=== PATIENT | female | born 1945 | race Caucasian/White ===

== ENCOUNTER 2017-09-07 07:00 | Day surgery (SDC) | payer OTHER ==
[2017-09-03 10:24] LABS: Protime INR 0.93
--- NOTE | 2017-09-03 10:31 | RAD REPORT ---
EXAM DESCRIPTION: RADOP - Outpatient Chest Single View - 09/03/2017 9:53 am CLINICAL HISTORY: Preop chest, pending catheterization COMPARISON: November 2016 TECHNIQUE: AP portable chest image was obtained 0948 hours . FINDINGS: Minimal fibrotic changes present similar to comparison. No failure, infiltrate or mass. Tr achea is midline Heart and vasculature are normal. No measurable pleural effusion and no pneumothorax . Degenerative and scoliotic changes are present in the spine with scoliosis rods in place. No hardwa re fracture or acute thoracic spine finding identifiable. There degenerative changes and fracture hermilo nges at the right shoulder joint that have shown complete or near complete healing since November 2016. N o acute aortic findings suspected. IMPRESSION: No failure, infiltrate or acute cardiopulmonary finding. Minimally fibrotic lung pattern has not changed. Complete or near complete healing of the proximal right humerus fracture since November 2016.
[~2017-09-07 07:00] MED LIST: HEPA 1000U/500MLS 2,000 UNIT/1,000 ML BAG IV ONE; LIDOCAINE 1% 20 ML MDV ONE; NA CHLORIDE 0.9% 500 ML ONE
[2017-09-07] MEDS ORDERED: ATROPINE SULF 1 MG/10 ML SYR IV ONE (07:31)
[2017-09-07] MEDS ORDERED: MIDAZOLAM HCL 2 MG/2 ML INJ ONE ×2 (07:31→07:32)
[2017-09-07 11:48] VITALS: BP 106/49; TEMP 98.3; O2SAT 96
--- NOTE | 2017-09-07 19:17 | OP ---
Surgeon: Yong Rivera MD Mrs. Saeed is 72. Procedure: Abdominal angiogram with special attention to the celiac and superior mesenteric arteries . 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 Findings: The patient had no significant stenosis of the celiac, superior mesenteric or inferior mes enteric arteries. Her aorta was free of any significant atherosclerotic changes. No significant riky cification or stenosis or aneurysmal dilatation anywhere. Procedure In Detail: The patient was brought to the cardiac kiln labourer in a fasting state and sedated with Versed. She was prepared and draped in usual sterile fashion. Right femoral artery was identif ied using palpation. Skin and tissues around the artery were anesthetized with 1% lidocaine. The ar dominga was entered using an 18-gauge needle, modified Seldinger technique 6-Albanian sheath. We put a pi gtail right at about the diaphragmatic dome area of the aorta. We were unable to do any AP views bec ause of Mckeon rods. They were very close to the area of interest. All the views we took were e ither 90 degree cross-table laterals or steeply angle views to get the Mckeon rods away from the area of interest. We did 2 injections into the aorta and able to get good views few slightly differe nt angles. There is no stenosis of the celiac, superior mesenteric, hepatic or splenic arteries or t he inferior mesenteric artery. The aorta was free of disease. It is believed the MRA was a false-po sitive test. At the end of the procedure, the arteriotomy was closed using Angio-Seal device. We di d an injection through the sheath to evaluate the right femoral artery. Closure was done without com plications. Estimated Blood Loss: From the procedure 5 cc. Maintenance Director: Leticia Wooten. Complications: None. SH/MODL Voice ID: [id number] Report ID: [id number]
== END 2017-09-07 12:41 | disposition home or self-care (01) ==
LOC: CCL 07:00
PROVIDERS: ATTEND Internal Medicine
DX: R93.8 Abnormal findings on diagnostic imaging of other specified body structures (principal); I10 Essential (primary) hypertension; Z91.011 Allergy to milk products
CPT/HCPCS: 36200; 36415; 71045; 75630; 85610; 85730; C1893; J2250 ×2

== ENCOUNTER 2017-09-17 14:17 | Emergency (ER) | payer OTHER ==
--- NOTE | 2017-09-17 15:33 | RAD REPORT ---
EXAM DESCRIPTION: RAD - Chest Single View - 09/17/2017 3:27 pm CLINICAL HISTORY: Chest pain. COMPARISON: 12/07/2016 FINDINGS: Portable technique limits examination quality. The lungs are grossly clear. The heart is normal in size. No displaced fractures.Scoliosis hardware i s in place. IMPRESSION: No acute intrathoracic process suspected.
[2017-09-17 15:44] LABS: Absolute Lymphocytes (CBC) 1.5 K/uL (0.7-4.9); Absolute Monocytes 0.5 K/uL (0.1-1.3); Absolute Neutrophil 3.1 K/uL (1.8-8.0); Basophils % 1.1 % (0-1.3); Eosinophils % 4.2 % (0-4.4); Hematocrit 39.3 % (36.0-45.0); Lymphocytes % 28.3 % (15.3-44.8); MCH 30.2 pg (27.0-35.0); MCV 90.9 fL (80-100); Monocytes % 9.9 % (3.3-12.3); RBC Red Blood Cell Count 4.32 M/uL (3.86-4.86)
[2017-09-17 15:54] LABS: Potassium 3.7 mEq/L (3.6-5.0); Protime INR 1.01
[2017-09-17 15:57] LABS: Magnesium 2.2 mg/dL (1.8-2.5)
--- NOTE | 2017-09-17 15:58 | RAD REPORT ---
EXAM DESCRIPTION: US - Abdomen Exam Limited - 09/17/2017 3:49 pm CLINICAL HISTORY: Abdominal pain. COMPARISON: None. FINDINGS: The gallbladder demonstrates no gallstones. A small amount of sludge may be present. No pe richolecystic fluid or gallbladder wall thickening. The common bile duct is normal measuring 4 mm. The liver demonstrates no findings of intrahepatic biliary dilatation. IMPRESSION: Essentially negative examination.
[2017-09-17 16:02] LABS: CKMB Creatine Kinase MB 0.7 ng/ml (0.3-4.0)
[2017-09-17 16:08] LABS: Arterial Blood Carboxyhemoglob 0.9 % (0-1.5); Blood O2 Saturation 95.2 % (92-98.5)
--- NOTE | 2017-09-17 16:39 | EKG ---
Test Date: 2017-09-17 Test Time: 15:23:36 Director Operating Room: TONO MEASUREMENT RESULTS: Intervals: Rate: 55 SC: 154 QRSD: 80 QT: 466 QTc: 445 [place]: P: 46 SC: 154 QRS: 14 T: 31 INTERPRETIVE STATEMENTS: Sinus bradycardia Cannot rule out Anterior infarct, age undetermined Abnormal ECG Compared to ECG 12/07/2016 12:26:34 Myocardial infarct finding now present Sinus rhythm no longer present Electronically Signed On 09-17-17 16:39:06 CDT by Yong Rivera
--- NOTE | 2017-09-17 16:40 | RAD REPORT ---
EXAM DESCRIPTION: CT - Chest For Pe Angio - 09/17/2017 4:29 pm CLINICAL HISTORY: Shortness of breath started today COMPARISON: None. TECHNIQUE: Dynamically enhanced axial 3 mm thick images of the chest were obtained during administra tion of <100> mL Isovue 370 IV contrast. Coronal and oblique reconstruction images were generated and reviewed. Exam utilizes a protocol for optimal evaluation of pulmonary arterial tree. All CT scans are performed using dose optimization technique as appropriate and may include automated exposure control or mA/KV adjustment according to patient size. FINDINGS: A pulmonary embolus is not seen. A thoracic aortic aneurysm is not noted. A pleural effusion is not seen. A pericardial effusion is not seen. A lung consolidation is not present. IMPRESSION: Negative for a pulmonary embolism.
--- NOTE | 2017-09-17 16:47 | RAD REPORT ---
EXAM DESCRIPTION: CT - Abdomen Pelvis W Contrast - 09/17/2017 4:29 pm CLINICAL HISTORY: Abdominal pain . COMPARISON: none. TECHNIQUE: Computed axial tomography of the abdomen pelvis was obtained. 100 cc Isovue-300 was admin istered intravenously. Oral contrast was not requested which limits evaluation of bowel. All CT scans are performed using dose optimization technique as appropriate and may include automated exposure control or mA/KV adjustment according to patient size. FINDINGS: The liver, spleen, pancreas, adrenal and kidneys appear unremarkable. There is no evidence of diverticulitis. A large amount of stool is present throughout the colon Mckeon rods united by pedicular screws traverse the spine. The right pedicular screw at L3 lies c ompletely lateral to the right pedicle within the musculature. IMPRESSION: Large amount of stool throughout the colon The right pedicular screw at L3 lies completely lateral to the right pedicle within the musculature
--- NOTE | 2017-09-17 16:48 | ER ---
Nurse's Notes [facility] Name: Nina Saeed Age: 72 yrs Sex: Female : 1945 Arrival Date: 09/17/2017 Time: 14:21 Bed 8 Private MD: Delbert Thomas E Diagnosis: Palpitations Presentation: 09/17 14:26 Presenting complaint: Patient states: i was at the [facility], i had this attacks where hj i cant breathe and my heart breathes fast; i feel shaky; reports nausea;. Transition of care: patient was not received from another setting of care. Onset of symptoms was September 17, 2017. 14:26 Method Of Arrival: Ambulatory hj 14:26 Acuity: TAMIKO 3 hj 14:28 Care prior to arrival: None. hj Triage Assessment: 14:28 General: Appears in no apparent distress. uncomfortable, Behavior is calm, cooperative, hj appropriate for age. Pain: Denies pain. Historical: - Allergies: 14:28 Milk Containing Products; hj - Home Meds: 14:30 alendronate 70 mg Oral tab [Active]; simvastatin 20 mg Oral tab [Active]; citalopram 40 hj mg tab [Active]; verapamil 80 mg Oral tab [Active]; enalapril maleate 5 mg Oral tab [Active]; zolmitriptan 2.5 mg Oral tab [Active]; aspirin 81 mg Oral chew [Active]; - PMHx: 14:28 chronic back pain; Hyperlipidemia; Hypertension; Migraines; hj - PSHx: 14:28 back surgery; Hysterectomy; hj - Immunization history:: Flu vaccine is not up to date. - Social history:: Smoking status: Patient/guardian denies using tobacco, never smoked. Screenin:03 Abuse screen: Denies threats or abuse. Nutritional screening: No deficits noted. ap3 Tuberculosis screening: No symptoms or risk factors identified. Fall Risk None identified. Assessment: 15:01 General: Appears comfortable, well groomed, Behavior is calm, cooperative. Pain: Denies ap3 pain. Neuro: Level of Consciousness is awake, alert, obeys commands, Oriented to person, place, time, situation. Cardiovascular: Heart tones S1 S2 present Patient's skin is warm and dry. Rhythm is regular. Respiratory: Airway is patent Respiratory effort is even, unlabored, Respiratory pattern is regular, symmetrical. GI: Bowel sounds present X 4 quads. : No signs and/or symptoms were reported regarding the genitourinary system. EENT: No signs and/or symptoms were reported regarding the EENT system. Derm: Skin is pink, warm \T\ dry. Musculoskeletal: Reports weakness in generalized body weakness. 15:58 Reassessment: patient is laying in bed, respirations even and unlabored. RT at bedside ap3 collecting ABG's. is at bedside. 16:52 Reassessment: patient laying in bed, semi-folwers. Respirations even and unlabored, ap3 Conversing with spouse at bedside. Bed locked in lowest position, side rails up X's 1. Call staley within reach. Vital Signs: 14:28 BP 98 / 56; Pulse 67; Resp 18; Temp 98.6(TE); Pulse Ox 100% on R/A; Weight 52.16 kg; hj Height 5 ft. 0 in. (152.40 cm); Pain 0/10; 15:02 BP 125 / 64; Pulse 58; Resp 17; Pulse Ox 98% on R/A; mh5 15:58 BP 122 / 68; Pulse 56; Resp 19; Pulse Ox 96% on R/A; mh5 16:53 BP 143 / 68; Pulse 55; Resp 18; Pulse Ox 100% on R/A; ap3 17:14 BP 128 / 63; Pulse 57; Resp 20; Pulse Ox 99% on R/A; ap3 14:28 Body Mass Index 22.46 (52.16 kg, 152.40 cm) ED Course: 14:21 Patient arrived in ED. rg4 14:21 Delbert Thomas MD is Private Physician. rg4 14:27 Triage completed. hj 14:28 Arm band placed on left wrist. hj 15:04 Patient has correct armband on for positive identification. Bed in low position. Call ap3 light in reach. Side rails up X 1. court recording monitor on. Pulse ox on. NIBP on. 15:08 Rosa Mccarthy FNP-C is PHCP. snw 15:08 Taye Elizondo MD is Attending Physician. snw 15:12 Radha Gonsalez RN is Primary Nurse. jl7 15:21 EKG done, by motorsports technician. reviewed by Rosa MAHONEY. tc 15:26 X-ray completed. Portable x-ray completed in exam room. Patient tolerated procedure bb2 well. 15:27 XRAY Chest (1 view) In Process Unspecified. EDMS 15:30 Inserted saline lock: 20 gauge in right antecubital area, using aseptic technique. ap3 Blood collected. 15:47 Note: u/s done portable. hr 15:48 US Abdomen Limited In Process Unspecified. EDMS 16:01 Respiratory care therapist to see patient. ap3 16:30 CT Chest For PE Angio In Process Unspecified. EDMS 16:30 Abdomen In Process Unspecified. EDMS 16:48 Delbert Thomas MD is Referral Physician. snw 17:16 No provider procedures requiring assistance completed. IV discontinued, intact, ap3 bleeding controlled, No redness/swelling at site. Pressure dressing applied. Administered Medications: No medications were administered Outcome: 16:48 Discharge ordered by . snw 17:15 Attestation : I agree with everything documented by Genny, Student Nurse. jl7 17:16 Discharged to home ambulatory, with family. ap3 17:16 Condition: stable 17:16 Discharge instructions given to patient, Instructed on discharge instructions, follow up and referral plans. medication usage, Demonstrated understanding of instructions, Prescriptions given X 1. 17:17 Patient left the ED. ap3 Signatures: Dispatcher [employer] EDID Rosa Mccarthy FNP-C DRY MILL OPERATOR-Csnw Marina Singh hr Tatiana Brothers, feed inspection supervisor EKG Ttc Kuldeep Nuñez RN RN hj Garcia, Rubi [address] [facility] Radha Gonsalez RN RN jl7 Arlen Gonzales bb2 Genny Kaiser ap3 Corrections: (The following items were deleted from the chart) 14:33 14:28 Pulse 67bpm; Resp 18bpm; Pulse Ox 100% RA; Temp 98.6F Temporal; 52.16 kg; Height hj 5 ft. 0 in.; BMI: 22.4; Pain 0/10; hj 14:33 14:28 BP 100 / 56; Pulse 67bpm; Resp 18bpm; Pulse Ox 100% RA; Temp 98.6F Temporal; hj 52.16 kg; Height 5 ft. 0 in.; BMI: 22.4; Pain 0/10; hj
--- NOTE | 2017-09-17 16:48 | EDPHYS ---
Physician Documentation [facility] Name: Nina Saeed Age: 72 yrs Sex: Female : 1945 Arrival Date: 09/17/2017 Time: 14:21 Bed 8 Private MD: Delbert Thomas E ED Physician Taye Elizondo HPI: 09/17 15:43 This 72 yrs old Female presents to ER via Ambulatory with complaints of snw Weakness, Shortness Of Breath. 15:43 The patient presents to the emergency department with weakness of the entire body, snw generalized weakness. Onset: The symptoms/episode began/occurred suddenly, intermittently over 2 months. Context: occurred usually after eating. Associated signs and symptoms: Pertinent positives: weakness. Severity of symptoms: At their worst the symptoms were moderate severe. Patient's baseline: Neuro: alert and fully oriented, Motor: no deficits, Ambulation: walks without assistance, Speech: normal. The patient has experienced similar episodes in the past, multiple times. The patient has been recently seen by a physician: with similar presenting complaints. Historical: - Allergies: 14:28 Milk Containing Products; hj - Home Meds: 14:30 alendronate 70 mg Oral tab [Active]; simvastatin 20 mg Oral tab [Active]; citalopram 40 hj mg tab [Active]; verapamil 80 mg Oral tab [Active]; enalapril maleate 5 mg Oral tab [Active]; zolmitriptan 2.5 mg Oral tab [Active]; aspirin 81 mg Oral chew [Active]; - PMHx: 14:28 chronic back pain; Hyperlipidemia; Hypertension; Migraines; hj - PSHx: 14:28 back surgery; Hysterectomy; hj - Immunization history:: Flu vaccine is not up to date. - Social history:: Smoking status: Patient/guardian denies using tobacco, never smoked. ROS: 15:37 Eyes: Negative for injury, pain, redness, and discharge, ENT: Negative for injury, snw pain, and discharge, Neck: Negative for injury, pain, and swelling. 15:37 Abdomen/GI: Negative for abdominal pain, nausea, vomiting, diarrhea, and constipation, Back: Negative for injury and pain, : Negative for injury, bleeding, discharge, and swelling, MS/Extremity: Negative for injury and deformity, Skin: Negative for injury, rash, and discoloration, Neuro: Negative for headache, weakness, numbness, tingling, and seizure, Psych: Negative for depression, anxiety, suicide ideation, homicidal ideation, and hallucinations. 15:37 Constitutional: Positive for chest pain, palpitations, shortness of breath, and nausea post eating x 2 months, eval per Dr. Caballero and Dr. Rivera. No new findings. Pt at Dr. Caballero's office today when "episode" happened and Dr. Caballero's nurse drove her to ED. 15:37 Cardiovascular: Positive for chest pain, palpitations. 15:37 Respiratory: Positive for shortness of breath, at rest. Exam: 15:36 Head/Face: Normocephalic, atraumatic. Eyes: Pupils equal round and reactive to light, snw extra-ocular motions intact. Lids and lashes normal. Conjunctiva and sclera are non-icteric and not injected. Cornea within normal limits. Periorbital areas with no swelling, redness, or edema. ENT: Nares patent. No nasal discharge, no septal abnormalities noted. Tympanic membranes are normal and external auditory canals are clear. Oropharynx with no redness, swelling, or masses, exudates, or evidence of obstruction, uvula midline. Mucous membranes moist. Neck: Trachea midline, no thyromegaly or masses palpated, and no cervical lymphadenopathy. Supple, full range of motion without nuchal rigidity, or vertebral point tenderness. No Meningismus. Chest/axilla: Normal chest wall appearance and motion. Nontender with no deformity. No lesions are appreciated. 15:36 Abdomen/GI: Soft, non-tender, with normal bowel sounds. No distension or tympany. No guarding or rebound. No evidence of tenderness throughout. Back: No spinal tenderness. No costovertebral tenderness. Full range of motion. Skin: Warm, dry with normal turgor. Normal color with no rashes, no lesions, and no evidence of cellulitis. MS/ Extremity: Pulses equal, no cyanosis. Neurovascular intact. Full, normal range of motion. Neuro: Awake and alert, GCS 15, oriented to person, place, time, and situation. Cranial nerves II-XII grossly intact. Motor strength 5/5 in all extremities. Sensory grossly intact. Cerebellar exam normal. Normal gait. Psych: Awake, alert, with orientation to person, place and time. Behavior, mood, and affect are within normal limits. 15:36 Constitutional: The patient appears alert, awake, frail, uncomfortable. 15:36 Cardiovascular: Rate: bradycardic, Rhythm: regular, Pulses: no pulse deficits are appreciated, Heart sounds: normal, Edema: is not appreciated, JVD: is not appreciated. 15:36 Respiratory: the patient does not display signs of respiratory distress, Respirations: shallow respirations, tachypnea, appears short of breath, Breath sounds: bronchial sounds, that are moderate, are heard diffusely. Vital Signs: 14:28 BP 98 / 56; Pulse 67; Resp 18; Temp 98.6(TE); Pulse Ox 100% on R/A; Weight 52.16 kg; hj Height 5 ft. 0 in. (152.40 cm); Pain 0/10; 15:02 BP 125 / 64; Pulse 58; Resp 17; Pulse Ox 98% on R/A; mh5 15:58 BP 122 / 68; Pulse 56; Resp 19; Pulse Ox 96% on R/A; mh5 16:53 BP 143 / 68; Pulse 55; Resp 18; Pulse Ox 100% on R/A; ap3 17:14 BP 128 / 63; Pulse 57; Resp 20; Pulse Ox 99% on R/A; ap3 14:28 Body Mass Index 22.46 (52.16 kg, 152.40 cm) hj MDM: 15:11 Patient medically screened. snw 16:48 Data reviewed: vital signs, nurses notes. Data interpreted: Pulse oximetry: on room air snw is 96 %. Interpretation: acceptable. Counseling: I had a detailed discussion with the patient and/or guardian regarding: the historical points, exam findings, and any diagnostic results supporting the discharge/admit diagnosis, lab results, radiology results, the need for outpatient follow up, to return to the emergency department if symptoms worsen or persist or if there are any questions or concerns that arise at home. Special discussion: Based on the patient's history, exam, and Dx evaluation, there is no indication for emergent intervention or inpatient Tx. It is understood by the patient/guardian that if the Sx's persist or worsen they need to return immediately for re-evaluation. Based on the patient's Hx, exam, and Dx evaluation, there is no indication for emergent surgery or inpatient Tx. It is understood by the patient/guardian that if the Sx's persist or worsen they need to return immediately for re-evaluation. Based on the history and exam findings, there is no indication for further emergent testing or inpatient evaluation. I discussed with the patient/guardian the need to see the bottom pounder cement shoes for further evaluation of the symptoms. I discussed with the patient/guardian the need to see the pile driving technician for further evaluation of the symptoms. I discussed with the patient/guardian the need to see the primary care provider for further evaluation of the symptoms. 09/17 15:10 Order name: Basic Metabolic Panel; Complete Time: 16:26 snw 09/17 15:10 Order name: CBC with Diff; Complete Time: 16: snw 09/17 15:10 Order name: Ckmb; Complete Time: 16: snw 09/17 15:10 Order name: CPK; Complete Time: 16:26 snw 09/17 15:10 Order name: Magnesium; Complete Time: 16:w 09/17 15:10 Order name: PT-INR; Complete Time: 16: snw 09/17 15:10 Order name: Ptt, Activated; Complete Time: 16:w 09/17 15:10 Order name: Troponin (emerg Dept Use Only); Complete Time: 16:w 09/17 15:10 Order name: XRAY Chest (1 view); Complete Time: 15:35 snw 09/17 15:23 Order name: US Abdomen Limited; Complete Time: 16:26 w 09/17 15:23 Order name: CT Chest For PE Angio; Complete Time: 16:43 snw 09/17 15:23 Order name: ABG; Complete Time: 16:26 w 09/17 16:15 Order name: Abdomen ; Complete Time: 16:49 EDMS 09/17 15:10 Order name: EKG; Complete Time: 15:11 snw 09/17 15:10 Order name: Cardiac monitoring; Complete Time: 15:13 snw 09/17 15:10 Order name: EKG - Nurse/Tech; Complete Time: 15:33 snw 09/17 15:10 Order name: IV Saline Lock; Complete Time: 15:33 snw 09/17 15:10 Order name: Labs collected and sent; Complete Time: 15:33 snw 09/17 15:10 Order name: O2 Per Protocol; Complete Time: 15:35 snw 09/17 15:10 Order name: O2 Sat Monitoring; Complete Time: 15:13 snw Administered Medications: No medications were administered Disposition: 09/18 10:29 Co-signature as Attending Physician, Taye Elizondo MD I agree with the assessment and hermilo plan of care. Disposition: 09/17/17 16:48 Discharged to Home. Impression: Palpitations. - Condition is Stable. - Discharge Instructions: Biliary Colic, Nonspecific Chest Pain, Palpitations. - Prescriptions for Bentyl 20 mg Oral Tablet - take 2 tablet by ORAL route every 6 hours As needed; 40 tablet. - Medication Reconciliation Form, Thank You Letter, Antibiotic Education, Prescription Opioid Use form. - Follow up: Delbert Thomas; When: Tomorrow; Reason: Recheck today's complaints, Continuance of care, Re-evaluation by your physician. Follow up: Emergency Department; When: As needed; Reason: Worsening of condition. Signatures: Dispatcher [employer] Taye Whitman MD MD cha Therrien, Shelly, SUPERVISOR BEATER ROOM-C SUPERVISOR BEATER ROOM-Csnw Kuldeep Nuñez, DONNA RN Genny Avendano ap3 Corrections: (The following items were deleted from the chart) 09/17 16:15 15:46 Abdomen Pelvis Wo Con+CT.RAD.BRZ ordered. [facility]
[2017-09-17 17:26] VITALS: TEMP 98.6
[2017-09-17 17:30] VITALS: BP 128/63; O2SAT 99
== END 2017-09-17 17:17 | disposition home or self-care (01) ==
LOC: ER 14:17
DX: R00.2 Palpitations (principal); I10 Essential (primary) hypertension; E78.5 Hyperlipidemia, unspecified; Z91.011 Allergy to milk products; Z79.82 Long term (current) use of aspirin
CPT/HCPCS: 36415; 71045; 71275; 74177; 76705; 80048; 82550; 82553; 82805; 83735; 84484; 85025; 85610; 85730; 93005; 99284; Q9967

== ENCOUNTER 2018-02-11 17:48 | Emergency (ER) | payer OTHER ==
--- NOTE | 2018-02-11 18:38 | ER ---
Nurse's Notes [facility] Name: Nina Saeed Age: 73 yrs Sex: Female : 1945 Arrival Date: 02/11/2018 Time: 17:50 Bed 8 Private MD: Delbert Thomas E Diagnosis: Urinary tract infection, site not specified Presentation: 02/11 18:09 Presenting complaint: Patient states: Urinary frequency that started today, but the aj1 last time that she went she noticed some blood in her urine. Denies fever. Transition of care: patient was not received from another setting of care. Onset of symptoms was February 11, 2018. Risk Assessment: Do you want to hurt yourself or someone else? Patient reports no desire to harm self or others. Initial Sepsis Screen: Does the patient meet any 2 criteria? No. Patient's initial sepsis screen is negative. Does the patient have a suspected source of infection? Yes: Dysuria/Frequency/Urgency/UTI. Care prior to arrival: None. 18:09 Method Of Arrival: Ambulatory aj1 18:09 Acuity: TAMIKO 4 aj1 Triage Assessment: 18:14 General: Appears in no apparent distress. comfortable, Behavior is calm, cooperative, aj1 appropriate for age. Pain: Complains of pain in left lower quadrant Pain currently is 5 out of 10 on a pain scale. Neuro: Level of Consciousness is awake, alert, obeys commands. Cardiovascular: Patient's skin is warm and dry. Respiratory: Airway is patent Respiratory effort is even, unlabored, Respiratory pattern is regular, symmetrical. GI: Reports lower abdominal pain, Patient currently denies diarrhea, nausea, vomiting. : Reports urinary frequency. Derm: Skin is pink, warm \T\ dry. normal. Musculoskeletal: Circulation, motion, and sensation intact. Historical: - Allergies: 18:14 Milk Containing Products; aj1 - Home Meds: 18:14 alendronate 70 mg Oral tab [Active]; aspirin 81 mg Oral chew [Active]; citalopram 40 mg aj1 tab [Active]; enalapril maleate 5 mg Oral tab [Active]; simvastatin 20 mg Oral tab [Active]; verapamil 240 mg oral C24P [Active]; zolmitriptan 2.5 mg Oral tab [Active]; - PMHx: 18:14 chronic back pain; Hyperlipidemia; Hypertension; Migraines; aj1 - Immunization history:: Flu vaccine is not up to date. - Social history:: Smoking status: Patient/guardian denies using tobacco. - Ebola Screening: : Patient denies travel to an Ebola-affected area in the 21 days before illness onset. Screenin:35 Abuse screen: Denies threats or abuse. Denies injuries from another. Nutritional sv screening: No deficits noted. Tuberculosis screening: No symptoms or risk factors identified. Fall Risk None identified. Assessment: 18:33 General: Appears in no apparent distress. uncomfortable, well groomed, well developed, sv Behavior is calm, cooperative, appropriate for age. Pain: Complains of pain in suprapubic area Pain currently is 5 out of 10 on a pain scale. Quality of pain is described as tender, Pain began today Is intermittent. Neuro: Level of Consciousness is awake, alert, obeys commands, Oriented to person, place, time, situation, Moves all extremities. Full function Gait is steady, Speech is normal. Respiratory: Respiratory effort is even, unlabored, Respiratory pattern is regular, symmetrical. GI: Abdomen is flat, Abd is soft X 4 quads Abdomen is tender to palpation in suprapubic area. : Reports urinary frequency, hematuria. Derm: Skin is pink, warm \T\ dry. Vital Signs: 18:14 BP 101 / 71; Pulse 63; Resp 18; Temp 98.6; Pulse Ox 98% on R/A; Weight 54.43 kg (R); aj1 Height 5 ft. 0 in. (152.40 cm) (R); Pain 5/10; 18:14 Body Mass Index 23.44 (54.43 kg, 152.40 cm) aj1 ED Course: 17:50 Patient arrived in ED. sb2 17:51 Delbert Thomas MD is Private Physician. sb2 18:13 Triage completed. aj1 18:14 Arm band placed on Patient placed in an exam room. aj1 18:20 Bryce Reveles PA is PHCP. jr8 18:20 David Johnson MD is Attending Physician. jr8 18:27 Bree Barbour RN is Primary Nurse. sv 18:35 Patient has correct armband on for positive identification. Bed in low position. Adult sv w/ patient. Door closed. Head of bed elevated. 18:37 Delbert Thomas MD is Referral Physician. jr8 18:49 No provider procedures requiring assistance completed. Patient did not have IV access sv during this emergency room visit. Administered Medications: No medications were administered Outcome: 18:37 Discharge ordered by . jr8 18:49 Discharged to home ambulatory, with significant other. sv 18:49 Condition: stable 18:49 Discharge instructions given to patient, Instructed on discharge instructions, follow up and referral plans. medication usage, Demonstrated understanding of instructions, follow-up care, medications, Prescriptions given X 2. 18:50 Patient left the ED. sv Signatures: Trudi Vazquez RN RN aj1 Bree Barbour RN RN sv Bryce Reveles PA PA jr8 Makenzie Vargas sb2
--- NOTE | 2018-02-11 18:38 | EDPHYS ---
Physician Documentation [facility] Name: Nina Saeed Age: 73 yrs Sex: Female : 1945 Arrival Date: 02/11/2018 Time: 17:50 Bed 8 Private MD: Delbert Thomas E ED Physician David Johnson HPI: 02/11 19:03 This 73 yrs old Female presents to ER via Ambulatory with complaints of jr8 Urinary Problem. 19:03 Onset: The symptoms/episode began/occurred acutely, today. Associated signs and jr8 symptoms: The patient has no apparent associated signs or symptoms. Modifying factors: The patient symptoms are alleviated by nothing, the patient symptoms are aggravated by urinating. The patient has experienced similar episodes in the past, a few times. The patient has not recently seen a physician. Historical: - Allergies: 18:14 Milk Containing Products; aj1 - Home Meds: 18:14 alendronate 70 mg Oral tab [Active]; aspirin 81 mg Oral chew [Active]; citalopram 40 mg aj1 tab [Active]; enalapril maleate 5 mg Oral tab [Active]; simvastatin 20 mg Oral tab [Active]; verapamil 240 mg oral C24P [Active]; zolmitriptan 2.5 mg Oral tab [Active]; - PMHx: 18:14 chronic back pain; Hyperlipidemia; Hypertension; Migraines; aj1 - Immunization history:: Flu vaccine is not up to date. - Social history:: Smoking status: Patient/guardian denies using tobacco. - Ebola Screening: : Patient denies travel to an Ebola-affected area in the 21 days before illness onset. ROS: 19:03 Eyes: Negative for injury, pain, redness, and discharge, ENT: Negative for injury, jr8 pain, and discharge, Neck: Negative for injury, pain, and swelling, Cardiovascular: Negative for chest pain, palpitations, and edema, Respiratory: Negative for shortness of breath, cough, wheezing, and pleuritic chest pain, Abdomen/GI: Negative for abdominal pain, nausea, vomiting, diarrhea, and constipation, Back: Negative for injury and pain, MS/Extremity: Negative for injury and deformity, Skin: Negative for injury, rash, and discoloration, Neuro: Negative for headache, weakness, numbness, tingling, and seizure. 19:03 : Positive for urinary symptoms, hematuria, burning with urination, Negative for small amounts, pelvic pain, flank pain, difficulty urinating, bladder incontinence, foul smelling urine, vaginal bleeding, vaginal discharge, vaginal itching. Exam: 19:03 Cardiovascular: Regular rate and rhythm with a normal S1 and S2. No gallops, murmurs, jr8 or rubs. Normal PMI, no JVD. No pulse deficits. Respiratory: Lungs have equal breath sounds bilaterally, clear to auscultation and percussion. No rales, rhonchi or wheezes noted. No increased work of breathing, no retractions or nasal flaring. Abdomen/GI: Soft, with normal bowel sounds. Mild suprapubic tenderness upon palpation. No distension or tympany. No guarding or rebound. Back: No spinal tenderness. No costovertebral tenderness. Full range of motion. Skin: Warm, dry with normal turgor. Normal color with no rashes, no lesions, and no evidence of cellulitis. MS/ Extremity: Pulses equal, no cyanosis. Neurovascular intact. Full, normal range of motion. Neuro: Awake and alert, GCS 15, oriented to person, place, time, and situation. Cranial nerves II-XII grossly intact. Motor strength 5/5 in all extremities. Sensory grossly intact. Cerebellar exam normal. Normal gait. Vital Signs: 18:14 BP 101 / 71; Pulse 63; Resp 18; Temp 98.6; Pulse Ox 98% on R/A; Weight 54.43 kg (R); aj1 Height 5 ft. 0 in. (152.40 cm) (R); Pain 5/10; 18:14 Body Mass Index 23.44 (54.43 kg, 152.40 cm) aj1 MDM: 18:34 Patient medically screened. jr8 18:37 Data reviewed: vital signs, nurses notes, and as a result, I will discharge patient. jr8 Data interpreted: Pulse oximetry: on room air is 98 %. Interpretation: normal. Counseling: I had a detailed discussion with the patient and/or guardian regarding: the historical points, exam findings, and any diagnostic results supporting the discharge/admit diagnosis, the need for outpatient follow up, a family practitioner, to return to the emergency department if symptoms worsen or persist or if there are any questions or concerns that arise at home. 02/11 18:34 Order name: Urine Microscopic Only [facility] 02/11 18:39 Order name: Urine Dipstick--Ancillary (enter results) eb 02/11 18:34 Order name: Urine Dipstick-Ancillary (obtain specimen); Complete Time: 18:49 8 02/11 18:39 Order name: Urine --Ancillary (enter results) eb Administered Medications: No medications were administered Disposition: 18:58 Co-signature as Attending Physician, David Johnson MD. rn Disposition: 02/11/18 18:37 Discharged to Home. Impression: Urinary tract infection, site not specified. - Condition is Stable. - Discharge Instructions: Urinary Tract Infection, Adult. - Prescriptions for Macrobid 100 mg Oral Capsule - take 1 capsule by ORAL route every 12 hours for 7 days; 14 capsule. Pyridium 200 mg Oral Tablet - take 1 tablet by ORAL route every 8 hours for 3 days; 9 tablet. - Medication Reconciliation Form, Thank You Letter, Antibiotic Education, Prescription Opioid Use form. - Follow up: Delbert Thomas MD; When: 5 - 6 days; Reason: Recheck today's complaints, Continuance of care, Re-evaluation by your physician. - Problem is new. - Symptoms are unchanged. Signatures: Dispatcher [employer] EDTrudi Ingram RN RN aj1 Bree Barbour RN RN sv Nieto, Roman, MD MD rn Roszak, Josh, PA PA jr8 Corrections: (The following items were deleted from the chart) 18:50 18:37 02/11/2018 18:37 Discharged to Home. Impression: Urinary tract infection, site sv not specified. Condition is Stable. Forms are Medication Reconciliation Form, Thank You Letter, Antibiotic Education, Prescription Opioid Use. Follow up: Delbert Thomas; When: 5 - 6 days; Reason: Recheck today's complaints, Continuance of care, Re-evaluation by your physician. Problem is new. Symptoms are unchanged. jr8
[2018-02-11 19:02] LABS: Urine Blood 3+ (NEG); Urine Glucose NEGATIVE (NEG); Urine Protein 2+ (NEG); Urine Specific Gravity 1.015 (1.005-1.030); Urine pH 5.5 (5.0-7.0)
[2018-02-11 19:03] VITALS: BP 101/71; TEMP 98.6; O2SAT 98
[2018-02-11 19:16] LABS: Urine Amorphous Sediment 1+ /HPF (NONE SEEN); Urine Bacteria <20 /HPF (<20); Urine Culture Reflex Order REFLEXED; Urine Mucus 1+ /HPF (NONE SEEN); Urine RBC >50 /HPF (NONE SEEN)
== END 2018-02-11 18:50 | disposition home or self-care (01) ==
LOC: ER 17:48
DX: N39.0 Urinary tract infection, site not specified (principal); I10 Essential (primary) hypertension; E78.5 Hyperlipidemia, unspecified; Z79.82 Long term (current) use of aspirin; Z91.011 Allergy to milk products
CPT/HCPCS: 81003; 81015; 81025; 87086; 87088; 99282

== ENCOUNTER 2019-07-17 16:32 | Emergency (ER) | payer OTHER ==
--- OUTSIDE RECORDS SUMMARY | 2019-07-17 16:33 | XMS REPORT ---
:1945 [facility] Address [address] [place] [address] Care Team Providers Name Role Phone Unavailable Unavailable Unavailable Problems This patient has no known problems. Allergies, Adverse Reactions, Alerts This patient has no known allergies or adverse reactions. Medications This patient has no known medications. Results Test Description Test Time Test Comments Text Results Atomic Results Result Comments RAD, SPINE, 2019-05-31 Reason for FINAL REPORT PATIENT ID: SCOLIOSIS STUDY, 2 14:41:00 Exam:->m43.17, m51.36 [id number] Technique: OR 3 VIEWS Frontal and lateral views of the total spine dated 05/31/2019 HISTORY: M43.17 COMPARISON: None Findings:Pedicle screws are seen from T4 through L5 on the left and T8-L5 on the right and crossing bar is seen at the level of L1. There is no radiographic evidence of hardware-related complications. Approximately 60 degrees scoliosis is seen from T1 through L3. Bones are osteopenic. No fracture visualized. There is grade 2 anterolisthesis of L5 on S1. There is marked narrowing of the intervertebral disc spaces in the lumbar spine. Lungs are clear. No pneumothorax or pleural effusion. Cardiac silhouette is normal in size. No air-filled, dilated loops of bowel to suggest obstruction. IMPRESSION:Status post fusion of the thoracic and lumbar spine as described above with a 16 degree scoliosis. Grade 2 anterolisthesis of L5 on S1. Signed: Della [place] Verified Date/Time: 05/31/2019 14:41:46 Reading Location: [facility] Reading Room
[2019-07-17] MEDS ORDERED: LIDOCAINE 1% MPF 2 ML AMPULE ONE (17:32)
[2019-07-17] MEDS ORDERED: CEFTRIAXONE 1000 MG/VIAL ONE (17:32)
--- NOTE | 2019-07-17 17:42 | ER ---
Nurse's Notes [facility] Name: Nina Saeed Age: 74 yrs Sex: Female : 1945 Arrival Date: 07/17/2019 Time: 16:35 Bed 13 Private MD: Delbert Thomas E Diagnosis: Urinary tract infection, site not specified Presentation: 07/17 16:55 Presenting complaint: Patient states: "I have a urinary tract infection, I know I do aj1 because I have to go all the time and when I do I have burning" Reports these symptoms started yesterday and got worse today. Denies fever. Transition of care: patient was not received from another setting of care. Onset of symptoms was July 17, 2019. Risk Assessment: Do you want to hurt yourself or someone else? Patient reports no desire to harm self or others. Initial Sepsis Screen: Does the patient meet any 2 criteria? No. Patient's initial sepsis screen is negative. Does the patient have a suspected source of infection? Yes: Dysuria/Frequency/Urgency/UTI. Care prior to arrival: None. 16:55 Method Of Arrival: Ambulatory aj1 16:55 Acuity: TAMIKO 4 aj1 Triage Assessment: 16:58 General: Appears in no apparent distress. comfortable, Behavior is calm, cooperative, aj1 appropriate for age. Pain: Complains of pain in pelvis. Neuro: Level of Consciousness is awake, alert, obeys commands. Cardiovascular: Patient's skin is warm and dry. Respiratory: Airway is patent Respiratory effort is even, unlabored, Respiratory pattern is regular, symmetrical. Historical: - Allergies: 16:58 Milk Containing Products; aj1 - Home Meds: 16:58 alendronate 70 mg Oral tab once wkly [Active]; enalapril maleate 5 mg Oral tab once aj1 daily [Active]; verapamil 240 mg Oral C24P once daily [Active]; rosuvastatin 10 mg oral tab 1 tab once daily [Active]; paroxetine HCl 10 mg oral tab 1 tab once daily [Active]; Estraderm TD [Active]; aspirin 81 mg Oral chew [Active]; - PMHx: 16:58 chronic back pain; Hyperlipidemia; Hypertension; Migraines; aj1 - Immunization history:: Flu vaccine is up to date. - Coronavirus screen:: The patient has NOT traveled to [place], [place], or [place] in the past 14 days. - Social history:: Smoking status: Patient/guardian denies using tobacco. - Ebola Screening: : Patient denies travel to an Ebola-affected area in the 21 days before illness onset. Screenin:45 Abuse screen: Denies threats or abuse. Denies injuries from another. Nutritional sg screening: No deficits noted. Tuberculosis screening: No symptoms or risk factors identified. Never had TB. Fall Risk None identified. Assessment: 17:00 General: Appears in no apparent distress. well groomed, well developed, well nourished, sg Behavior is calm, cooperative, appropriate for age. Pain: Complains of pain in left mid back and suprapubic area Quality of pain is described as aching, sharp. Neuro: Level of Consciousness is awake, alert, obeys commands, Oriented to person, place, time, Quick Mixer Operator are equal bilaterally Moves all extremities. Cardiovascular: Heart tones S1 S2 present Chest pain is denied. Respiratory: Airway is patent Respiratory effort is even, unlabored, Respiratory pattern is regular, symmetrical. GI: Abdomen is round non-distended. : Reports pain in left in suprapubic area flank(s), with urination. EENT: No signs and/or symptoms were reported regarding the EENT system. Derm: Skin is pink, warm \\T\\ dry. Musculoskeletal: Circulation, motion, and sensation intact. Range of motion: intact in all extremities. Vital Signs: 16:58 BP 133 / 76; Pulse 67; Resp 18; Temp 98.3; Pulse Ox 100% on R/A; Weight 54.43 kg (R); aj1 Height 5 ft. 0 in. (152.40 cm) (R); Pain 8/10; 17:45 BP 132 / 70; Pulse 66; Resp 17; Pulse Ox 100% on R/A; sg 16:58 Body Mass Index 23.44 (54.43 kg, 152.40 cm) aj1 ED Course: 16:35 Patient arrived in ED. mr 16:35 Delbert Thomas MD is Private Physician. mr 16:43 [facility] Haider [facility] 16:43 Taye Elizondo MD is Attending Physician. [facility] 16:56 Triage completed. aj1 16:58 Arm band placed on Patient placed in an exam room. aj1 17:00 Patient has correct armband on for positive identification. Bed in low position. Call sg light in reach. Pulse ox on. NIBP on. Warm blanket given. Head of bed elevated. 17:05 Brannon Colvin, RN is Primary Nurse. 17:41 Delbert Thomas MD is Referral Physician. [facility] 17:45 Urine collected: clean catch specimen, clear, ulises colored. jb1 17:45 No provider procedures requiring assistance completed. urine sent to lab as ordered. sg Patient did not have IV access during this emergency room visit. Administered Medications: 17:35 Drug: Rocephin (cefTRIAXone) 1 grams Route: IM; Site: left ventrogluteal; Outcome: 17:42 Discharge ordered by . [facility] 17:45 Discharged to home ambulatory, with family. 17:45 Condition: good 17:45 Discharge instructions given to patient, Instructed on discharge instructions, follow up and referral plans. medication usage, safety practices, Demonstrated understanding of instructions, follow-up care, medications, Prescriptions given X 1. 17:50 Patient left the ED. ms Signatures: Tee Ly jb1 Trudi Vazquez, RN RN aj Brannon Colvin, RN RN sg Aroldo Haider PA PA [facility] Sierra Workman mr Javi La ms
--- NOTE | 2019-07-17 17:42 | EDPHYS ---
Physician Documentation [facility] Name: Nina Saeed Age: 74 yrs Sex: Female : 1945 Arrival Date: 07/17/2019 Time: 16:35 Bed 13 Private MD: Delbert Thomas E ED Physician Taye Elizondo HPI: 07/17 17:39 This 74 yrs old Female presents to ER via Ambulatory with complaints of jmm Urinary Problem. 17:39 The patient presents with urinary symptoms, dysuria, frequency, urgency. Onset: The jmm symptoms/episode began/occurred gradually, 2 week(s) ago. Modifying factors: The symptoms are alleviated by nothing, the symptoms are aggravated by nothing. Associated signs and symptoms: Pertinent positives: dysuria, Pertinent negatives: fever. Patient was prescribed a 3 day course of oral abx which transiently resolved symptoms. Patient denies vomiting or fever but complains of nausea. . Historical: - Allergies: 16:58 Milk Containing Products; aj1 - Home Meds: 16:58 alendronate 70 mg Oral tab once wkly [Active]; enalapril maleate 5 mg Oral tab once aj1 daily [Active]; verapamil 240 mg Oral C24P once daily [Active]; rosuvastatin 10 mg oral tab 1 tab once daily [Active]; paroxetine HCl 10 mg oral tab 1 tab once daily [Active]; Estraderm TD [Active]; aspirin 81 mg Oral chew [Active]; - PMHx: 16:58 chronic back pain; Hyperlipidemia; Hypertension; Migraines; aj1 - Immunization history:: Flu vaccine is up to date. - Coronavirus screen:: The patient has NOT traveled to [place], [place], or [place] in the past 14 days. - Social history:: Smoking status: Patient/guardian denies using tobacco. - Ebola Screening: : Patient denies travel to an Ebola-affected area in the 21 days before illness onset. ROS: 17:39 Constitutional: Negative for fever, chills, and weight loss, Cardiovascular: Negative jmm for chest pain, palpitations, and edema, Respiratory: Negative for shortness of breath, cough, wheezing, and pleuritic chest pain. 17:39 : Positive for urinary symptoms. 17:39 All other systems are negative. Exam: 17:39 Head/Face: atraumatic. Eyes: EOMI, no conjunctival erythema appreciated ENT: Moist [facility] Mucus Membranes Neck: Trachea midline, Supple Chest/axilla: Normal chest wall appearance and motion. Cardiovascular: Regular rate and rhythm. No edema appreciated Respiratory: Normal respirations, no respiratory distress appreciated Abdomen/GI: Non distended, soft 17:39 Skin: General appearance color normal MS/ Extremity: Moves all extremities, no obvious deformities appreciated, no edema noted to the lower extremities Neuro: Awake and alert, normal gait Psych: Behavior is normal, Mood is normal, Patient is cooperative and pleasant 17:39 Constitutional: The patient appears in no acute distress, alert, awake. 17:39 Back: CVA tenderness, is absent. Vital Signs: 16:58 BP 133 / 76; Pulse 67; Resp 18; Temp 98.3; Pulse Ox 100% on R/A; Weight 54.43 kg (R); aj1 Height 5 ft. 0 in. (152.40 cm) (R); Pain 8/10; 17:45 BP 132 / 70; Pulse 66; Resp 17; Pulse Ox 100% on R/A; sg 16:58 Body Mass Index 23.44 (54.43 kg, 152.40 cm) aj1 MDM: 17:01 Patient medically screened. hermilo 17:40 Data reviewed: vital signs, nurses notes. Counseling: I had a detailed discussion with megan the patient and/or guardian regarding: the historical points, exam findings, and any diagnostic results supporting the discharge/admit diagnosis, the need for outpatient follow up, to return to the emergency department if symptoms worsen or persist or if there are any questions or concerns that arise at home. ED course: Patient is alert and non toxic in appearance in the ED. Patient is advised to follow up with pcp and otherwise given strict return precautions. patient understood and agrees with the plan of care. . 07/17 17:26 Order name: Urine Culture [facility] 07/17 17:47 Order name: Urine Dipstick--Ancillary (enter results) ms Administered Medications: 17:35 Drug: Rocephin (cefTRIAXone) 1 grams Route: IM; Site: left ventrogluteal; sg Disposition: 07/18 07:44 Co-signature as Attending Physician, Taye Elizondo MD I agree with the assessment and [facility] plan of care. Disposition: 07/17/19 17:42 Discharged to Home. Impression: Urinary tract infection, site not specified. - Condition is Stable. - Discharge Instructions: Urinary Tract Infection, Adult. - Prescriptions for Cephalexin 500 mg Oral Capsule - take 1 capsule by ORAL route every 12 hours for 10 days; 20 capsule. - Medication Reconciliation Form, Thank You Letter, Antibiotic Education, Prescription Opioid Use form. - Follow up: Delbert Thomas MD; When: 2 - 3 days; Reason: Recheck today's complaints, Continuance of care, Re-evaluation by your physician. Signatures: Dispatcher [employer] EDTrudi Ingram RN RN aj1 Brannon Colvin RN RN sg Taye Elizondo MD MD cha Mickail, Joel, PA PA [place] ms Corrections: (The following items were deleted from the chart) 07/17 17:50 17:42 07/17/2019 17:42 Discharged to Home. Impression: Urinary tract infection, site ms not specified. Condition is Stable. Forms are Medication Reconciliation Form, Thank You Letter, Antibiotic Education, Prescription Opioid Use. Follow up: Delbert Thomas; When: 2 - 3 days; Reason: Recheck today's complaints, Continuance of care, Re-evaluation by your physician. megan
[2019-07-17 17:55] LABS: Urine Blood 2+ (NEG); Urine Glucose NEGATIVE (NEG); Urine Protein TRACE (NEG); Urine Specific Gravity >1.030 (1.005-1.030)
== END 2019-07-17 17:50 | disposition home or self-care (01) ==
LOC: ER 16:32
DX: N39.0 Urinary tract infection, site not specified (principal); I10 Essential (primary) hypertension; E78.5 Hyperlipidemia, unspecified; Z79.82 Long term (current) use of aspirin; Z91.011 Allergy to milk products
CPT/HCPCS: 87088; 87086; 81003; 96372; 99284; J2001

== ENCOUNTER 2021-02-06 07:55 | Observation (INO) | payer OTHER ==
--- OUTSIDE RECORDS SUMMARY | 2021-02-06 07:59 | XMS REPORT | Continuity of Care Document ---
:[address] [facility] t Address [address] [place] [address] Care Team Providers Name Role Phone Darrian Thomas MD Primary Care Physician Daphnie FRIEND Attending Clinician Unavailable Ramon Beasley Attending Clinician Brigiod Pascual MD Attending Clinician Jeronimo FRIEND Attending Clinician Unavailable Agustin Rivas DO Attending Clinician Nikolai FRIEND Attending Clinician Unavailable Judi TIJERINA Attending Clinician Jc GIRON Attending Clinician Rianna Dong NP Attending Clinician MD Ramon BEASLEY Attending Clinician Unavailable Madhu Gonzalez MD Attending Clinician MARTINEZ Admitting Clinician Unavailable DIMITRIS LAU Admitting Clinician Unavailable Payers Payer Name Policy Type Policy Effective Date Expiration Date Sour ce Number MEDICAREMEDICARE PART [id number] 2011 [facility] AND 00:00:00 [facility] [id number] [place] [id number] 2011 [facility] OF 00:00:00 [id number] 1-PresentCommercial Problems Condition Condition Condition Status Onset Resolution Last Treating Co mments Source Name Details Category Date Date Treatment Clinician Date Preoperati Preoperati Disease Active M ethodi ve testing ve testing 07-09 st 00:00: Hospita 00 l Idiopathic Idiopathic Disease Active 2019-06 Overview : Methodi scoliosis scoliosis 2-04 Formattin s t 00:00: g of this Hospita 00 note l might be different from the original. Added automatic ally from request for surgery Spondyloli Spondyloli Disease Active 2019-06 Overview : Methodi sthesis sthesis 2-[address] 00:00: g of this Hospita 00 note l might be different from the original. Added automatic ally from request for surgery Acquired Acquired Disease Active Overview: Me thodi deformity deformity 4-22 Formattin s t of right of right 00:00: g of this Hos naldo lower leg lower leg 00 note l might be different from the original. Added automatic ally from request for surgery Acquired Acquired Disease Active Overview: Me thodi hallux hallux 4-[address] valgus of valgus of 00:00: g of this H ospita right foot right foot 00 note l might be different from the original. Added automatic ally from request for surgery Pain in Pain in Disease Active Methodi both feet both feet 3-19 st 00:00: Hospita 00 l Painful Painful Disease Active Methodi leg and leg and 3-19 st moving moving 00:00: Hospita toes toes 00 l syndrome syndrome Migraine Migraine Disease Active Metho di without without 3-19 st aura and aura and 00:00: Hospit a without without 00 l status status migrainosu migrainosu s, not s, not intractabl intractabl e e Chronic Chronic Disease Active Methodi bilateral bilateral 3-19 st low back low back 00:00: Hospit a pain with pain with 00 l bilateral bilateral sciatica sciatica Allergies, Adverse Reactions, Alerts Allergy Allergy Status Severity Reaction(s) Onset Inactive Treating Comm ents Source Name Type Date Date Clinician Jyotsna Smithi Active Diarrhea Metho di ty to 06-21 st adverse 00:00: Hospita reaction 00 l s to drug Family History Family Member Diagnosis Comments Start Date Stop Date Source Natural brother Alzheimer's disease [facility] Natural brother Cerebral aneurysm [facility] Natural father Cancer [facility] Natural father Hypertension [facility] father Stroke [facility] Natural mother Diabetes [facility] Natural mother Heart disease [facility] Natural mother Hypertension [facility] mother Stroke [facility] sister Cancer [facility] Social History Social Habit Start Date Stop Date Quantity Comments Source Sex Assigned At [facility] History SDWV Caodaism Alcohol Std Drinks Hospit al History SD[facility] Alcohol Binge Hospital Tobacco use and 2020-08-08 2020-08-08 Never used Caodaism exposure 00:00:00 00:00:00 Hospital Alcohol intake 2020-08-08 2020-08-08 Ex-drinker Caodaism 00:00:00 00:00:00 (finding) Hospital History SDOH 2020-07-09 2020-07-09 1 Caodaism Alcohol Frequency 00:00:00 00:00:00 Hospita l Smoking Status Start Date Stop Date Source Never smoker [facility] Hospit al Medications Ordered Filled Start Stop Current Ordering Indication Dosage Frequency Signature Comments Components Source Medication Medication Date Date Medication? Clinician (SIG) Name Name methocarbam Yes 250mg Q.[id number] Take 0.5 Methodi oL 3-[id number] (Robaxin) 00:00: 3D (250 mg Hospi ta 500 MG 00 total) by l tablet mouth 3 (three) times a day. methocarbam 2020- No 250mg Q.[id number] Take 0.5 Methodi oL 3-08 15-[id number] (Robaxin) 00:00: 00:00 3D (250 mg Hosp demetrius 500 MG 00 :00 total) by l tablet mouth 3 (three) times a day. gabapentin 2021- No [id number] 100mg Q.[id number] Take 1 Methodi (Neurontin) 08-[id number] 100 mg 00:00: 05:59 3D (100 mg Hospita capsule 00 :00 total) by l mouth 3 (three) times a day. HYDROcodone 2020-2020- [place] [id number] 1{tbl} Q8H Take 1 Methodi -acetaminop 2-23 -[address] hen (Ballooning Nest Eggs) 00:00: 04:59 mouth Hosp demetrius 5-325 mg 00 :00 every 8 l per tablet (eight) hours as needed for moderate pain for up to 30 days .acute pain. Max Daily Amount: 3 tablets HYDROcodone 2020-0 2020- No [id number] 1{tbl} Q8H Take 1 Methodi -acetaminop 2-10 03-[address] hen (Ballooning Nest Eggs) 00:00: 05:59 mouth Hosp demetrius 5-325 mg 00 :00 every 8 l per tablet (eight) hours as needed for moderate pain for up to 30 days .acute pain. Max Daily Amount: 3 tablets methocarbam 2020-2020- No 500mg Q.25D Take 1 M ethodi oL 2-03 17- tablet st (Robaxin) 00:00: 00:00 (500 mg Hosp demetrius 500 MG 00 :00 total) by l tablet mouth 4 (four) times a day as needed for muscle spasms. methocarbam 2020-2020- No 250mg Q.[id number] Take 0.5 Methodi oL 2-08-[id number] (ROBAXIN) 00:00: 05:59 3D (250 mg Hosp demetrius 500 MG 00 :00 total) by l tablet mouth 3 (three) times a day as needed for muscle spasms for up to 15 days. rosuvastati Yes 10mg QD Take 10 mg Methodi n (CRESTOR) 1-[address] 10 MG 22:46: daily. Hospita tablet 37 l PARoxetine Yes 10mg QD Take 10 mg M ethodi (PAXIL) 10 -[address] MG tablet 22:46: every Hospita 37 morning. l SUMAtriptan 2020-0 Yes 100mg Take 100 M ethodi (IMITREX) 1-[address] 100 MG 22:46: mouth once Hospi ta tablet 37 as needed l for migraine. May repeat in 2 hours if unresolved . Do not exceed 200 mg in 24 hours. conjugated 2021-0 Yes QD Insert Metho di estrogens 07-[address] (PREMARIN) 22:46: vagina Hospi ta 0.625 37 daily. l mg/gram vaginal cream acetaminoph Yes 500mg Q6H Take 500 M ethodi en 1-[address] (TYLENOL) 22:46: mouth Hospita 500 MG 37 every 6 l tablet (six) hours as needed for mild pain. Ca/D3/mag Yes Q.5D Take by Metho di ox/zinc/cops 07-[address] /marcial/bor 22:46: (two) Hospita (CALCIUM 37 times a l 600-D3 PLUS day. ORAL) ascorbic Yes 1000mg Q.5D Take 1,000 M ethodi acid, 1-[address] vitamin C, 22:46: mouth 2 Hosp demetrius (vitamin C) 37 (two) l 1000 MG times a tablet day. omega-3 Yes QD Take by Methodi fatty 07-[address] acids/fish 22:46: daily. Hospi ta oil (FISH 37 l OIL OMEGA 3-6-9 ORAL) multivitami Yes 1{tbl} QD Take 1 Me thodi n with - tablet by st minerals 22:46: mouth Hospita tablet 37 daily. l aspirin Yes 81mg QD Take 81 mg Meth scottie (ECOTRIN) 07-[address] 81 MG 22:46: daily. Hospita enteric 37 l coated tablet cranberry Yes QD Take by Metho di fruit 07-[address] extract 22:46: daily. Hospita (CRANBERRY 37 l CONCENTRATE ORAL) verapamil Yes 240mg QD Take 240 Met hodi sustained 1-[address] release 22:46: mouth Hospita (CALAN-SR) 37 nightly. l 240 MG SR tablet cyanocobala Yes Take by Met hodi min, 07-[address] vitamin 22:46: Hospita B-12, 37 l (VITAMIN B-12 ORAL) multivitami Yes Take by Met hodi n with - mouth. st minerals 22:46: Hospita (HAIR,SKIN 37 l AND NAILS ORAL) Lactobacill Yes Take by Met hodi us 07-[address] acidophilus 22:46: Hospit a (PROBIOTIC 37 l ORAL) traMADoL Yes [id number] 50mg Q6H Take 50 mg Me thodi (ULTRAM) 50 07-[address] mg tablet 22:46: every 6 Hospi ta 37 (six) l hours as needed for moderate pain .acute pain. omeprazole Yes 20mg QD Take 20 mg M ethodi (PriLOSEC) 07-[address] 20 MG 22:46: daily. Hospita capsule 37 l docusate 2020- No 100mg Q.5D Take 1 Metho di sodium 07-[address] (Colace) 00:00: 05:59 (100 mg Hospi ta 100 MG 00 :00 total) by l capsule mouth 2 (two) times a day for 30 days. methocarbam 2020- No 250mg Q.[id number] Take 0.5 Methodi oL 07-[id number] (ROBAXIN) 00:00: 00:00 3D (250 mg Hosp demetrius 500 MG 00 :00 total) by l tablet mouth 3 (three) times a day as needed for muscle spasms for up to 15 days. HYDROcodone 2020- No [id number] 1{tbl} Q6H Take 1 Methodi -acetaminop 07-[address] hen (NORCO) 00:00: 05:59 mouth Hosp demetrius 5-325 mg 00 :00 every 6 l per tablet (six) hours as needed for severe pain (severe breakthrou gh post op pain) for up to 10 days .acute pain, s/p spine surgery, has received this medication in the hospital and tolerating well. Max Daily Amount: 4 tablets TURMERIC 2020- No Take by Metho di ORAL 06-[address] 23:14: 00:00 Hospita 46 :00 l alendronate Yes EVERY 7 Met hodi (FOSAMAX) 6-[address] 70 MG 00:00: Hospita tablet 00 l enalapril Yes DAILY Methodi (VASOTEC) 5 6-25 st MG tablet 00:00: Hospita 00 l Vital Signs Vital Name Observation Time Observation Value Comments Source Body weight 2020-08-08 20:34:00 56.7 kg [facility] BMI 2020-08-08 20:34:00 24.41 kg/m2 [facility] Systolic blood 2020-07-13 22:08:10 133 mm[Hg] [facility] pressure Diastolic blood 2020-07-13 22:08:10 60 mm[Hg] [facility] pressure Heart rate 2020-07-13 22:08:10 97 /min [facility] Body temperature 2020-07-13 22:08:10 37.67 Jacqueline [facility] Respiratory rate 2020-07-13 22:08:10 18 /min [facility] Oxygen saturation in 2020-07-13 22:08:10 96 /min [facility] Arterial blood by Pulse oximetry Body height 2020-07-09 12:54:00 152.4 cm [facility] Procedures Procedure Date / Time Performing Clinician Source Performed XR SPINE SCOLIOSIS 2-3 2020-11-05 19:14:28 Duarte Beasley [facility] VIEWS CT CHEST W CONTRAST 2020-08-08 22:03:31 Sophia Pascual [facility] CT SOFT TISSUE NECK W 2020-08-08 22:03:[address] [facility] CONTRAST XR SPINE SCOLIOSIS 2-3 2020-08-08 19:23:10 Duarte Beasley [facility] VIEWS HC COMPLETE BLD COUNT 2020-07-13 11:30:00 Tobi Ryder [facility] W/AUTO DIFF SMEAR REVIEW 2020-07-13 11:30:00 Tobi Ryder [facility] BASIC METABOLIC PANEL 2020-07-13 10:00:00 Tobi Ryder [facility] ESTIMATED GFR 2020-07-13 10:00:00 Tobi Ryder [facility] BASIC METABOLIC PANEL 2020-07-12 10:40:00 Tobi Ryder [facility] HC COMPLETE BLD COUNT 2020-07-12 10:40:00 Tobi Ryder [facility] W/AUTO DIFF ESTIMATED GFR 2020-07-12 10:40:00 [facility] RESPIRATORY PATHOGEN 2020-07-12 01:40:00 [facility] PANEL WITH COVID-19 RT-PCR BLOOD CULTURE, AEROBIC & 2020-07-12 01:30:00 [facility] ANAEROBIC BLOOD CULTURE, AEROBIC & 2020-07-11 23:53:00 [facility] ANAEROBIC CBC HEMOGRAM 2020-07-11 10:40:00 Keo Braun [facility]ital XR CHEST 1 VW PORTABLE 2020-07-11 07:18:04 [facility] URINE CULTURE 2020-07-11 06:10:00 [facility] URINALYSIS SCREEN AND 2020-07-11 06:10:00 [facility] MICROSCOPY, WITH REFLEX TO CULTURE CBC HEMOGRAM 2020-07-10 09:39:00 Keo Braun spital INTRAOPERATIVE MONITORING 2020-07-09 19:31:41 [facility] SURGICAL PATHOLOGY 2020-07-09 19:10:00 [place] [facility] REQUEST XR LUMBAR SPINE 1 VW 2020-07-09 18:30:43 Duarte Beasley [facility] OR [place] > 1 HOUR 2020-07-09 18:30:00 Keo Braun [facility]ital ARTERIAL BLOOD GAS, 2020-07-09 17:50:00 Duarte Beasley [facility] CORRECTED POTASSIUM, SYRINGE 2020-07-09 17:50:00 [facility] SODI[facility] L[facility], SYRINGE 2020-07-09 17:50:00 Duarte Beasley [facility] HEMOGLOBIN, SYRINGE 2020-07-09 17:50:00 Beasley Duarte [facility] IONIZED CALCIUM, ARTERIAL 2020-07-09 17:50:00 [facility] MAGNESIUM LEVEL 2020-07-09 17:50:00 [facility] LACTIC ACID, SYRINGE 2020-07-09 17:50:00 [facility] GLUCOSE LEVEL, SYRINGE 2020-07-09 17:50:00 [facility] RED BLOOD CELLS 2020-07-09 16:52:56 [facility]LOOD GAS, 2020-07-09 15:22:00 Duarte Beasley [facility] CORRECTED SODIUM LEVEL, SYRINGE 2020-07-09 15:22:00 Duarte Beasley [facility] POTASSIUM, SYRINGE 2020-07-09 15:22[facility], ARTERIAL 2020-07-09 15:22:00 [facility] GLUCOSE LEVEL, SYRINGE 2020-07-09 15:22:00 Martinez [facility] HEMOGLOBIN, SYRINGE 2020-07-09 15:22:00 Duarte Beasley [facility] LACTIC ACID, SYRINGE 2020-07-09 15:22[facility]00 [facility] 2020-07-09 15:22:00 [facility] [place] > 1 HOUR 2020-07-09 15:15:00 Keo Braun spital CENTRAL LINE 2020-07-09 14:25:38 Nilsa Greene Ho spital ARTERIAL LINE 2020-07-09 14:25:20 Nilsa Greene Ho spital ANESTHESIA INTUBATION 2020-07-09 14:24:29 [facility] 1 VW PORTABLE 2020-07-09 14:15:00 [facility] FUSION, ANT AND POST 2020-07-09 13:27:00 [facility] SPINAL COLUMN, LUMBAR, ANTERIOR AND POSTERIOR APPROACHES, W LUMBAR LAMINECTOMY ABO AND RH CONFIRMATION 2020-07-09 13:05:00 Duarte Beasley [facility] US CAROTID DUPLEX 2020-07-05 20:41:00 Malahfji, M [facility] BILATERAL COVID-19 QUALITATIVE 2020-07-05 18:39:00 JudiMaite [facility] RT-PCR TYPE AND SCREEN 2020-06-28 23:31:00 [place] [facility] XR SPINE SCOLIOSIS 2-3 2020-06-28 19:48:28 Duarte Beasley [facility] VIEWS TTE COMPLETE, WO 2020-06-22 21:49:31 [facility] CONTRAST, W DOPPLER ([id number]) ECG 12-LEAD 2020-06-22 20:49:43 [facility] Plan of Care Planned Activity Planned Date Details Comments Source Future Scheduled 2020-02-14 INFLUENZA VACCINE (#1) [facility] 00:[facility]:00 [code = INFLUENZA Medical Ce nter VACCINE (#1)] Future Scheduled 2012-01-[address] [facility] 00:00:00 WELLNESS (YEAR 2 or Medical Center FIRST YEAR if no IPPE) [code = MEDICARE ANNUAL WELLNESS (YEAR 2 or FIRST YEAR if no IPPE)] Future Scheduled 2011 PNEUMOCOCCAL 65+ YRS [facility] - Test 00:00:00 (1 of 1 - Medical Center [id number] PCV13) [code = PNEUMOCOCCAL 65+ YRS (1 of 1 - [id number] PCV13)] Future Scheduled [address] [facility] 00:00[facility]00 [facility] breast (procedure) [code = 114436693] Future Scheduled [address] [facility] 00:00:00 [facility] colon (procedure) [code = 749174344] Future Scheduled 65+ [facility]OCOCCAL [facility] Test VACCINE (1 of 2 - PPSV23) [code = 65+ PNEUMOCOCCAL VACCINE (1 of 2 - PPSV23)] Future Scheduled Hepatitis C screening [facility] Test (procedure) [code = 715656333] Future Scheduled BREAST CANCER [facility] Test SCREENING [code = BREAST CANCER SCREENING] Future Scheduled COLONOSCOPY SCREENING [facility] Test [code = COLONOSCOPY SCREENING] Future Scheduled SHINGLES VACCINES (#1) M [facility]i Hospital Test [code = SHINGLES VACCINES (#1)] Future Scheduled INFLUENZA VACCINE [facility] Test [code = INFLUENZA VACCINE] Encounters Start End Encounter Admission Attending Care Care Encounter Source Date/Time Date/Time Type Type Clinicians Facility Department ID 2020-12-11 2020-12-11 Orders Daphnie, 1.2.840.1 [id number] Methodi 00:00:00 00:00:00 Only Jose 67775.1.[address] 3.430.2.7 Hospit a .3.508583 l .8 2020-11-05 2020-11-05 Office Martinez 1.2.840.1 [id number] Methodi 13:43:57 14:26:53 Visit Duarte Navarro 30368.1.1 057 s t 3.430.2.7 Hospit a .3.623843 l .8 2020-11-05 2020-11-05 Travel 1.2.840.1 1.2.761.675 [id number] Methodi 00:00:00 00:00:[address] 3.430.2.7 0.2.7.3.698 Ho spita .3.032853 084.8 l .8 2020-11-05 2020-11-05 [id number] [address] [place] 00:00:00 00:00:00 DUARTE [address] 2020-11-05 2020-11-05 [facility] [id number] [address] [place] 00:00:00 00:00:00 DUARTE [address] 2020-10-10 2020-10-10 Telephone Sophia Pascual 1.2.840.1 [id number] Methodi 10:23:46 12:09:51 Consult Brigido 08124.1.[address] 3.430.2.7 Hospit a .3.931321 l .8 2020-10-10 2020-10-10 Outpatient Sophia PASCUAL [facility] [id number] [place] 00:00:00 00:00:[address] 2020-10-082020-10-08 Orders Minor, Ajia 1.2.840.1 [id number] Methodi 00:00:00 00:00:[address] 3.430.2.7 Hospit a .3.799496 l .8 2020-09-11 2020-09-11 Orders Eller, 1.2.840.1 [id number] Methodi 00:00:00 00:00:00 Only Jose 79084.1.[address] 3.430.2.7 Hospit a .3.791724 l .8 2020-08-20 2020-08-20 [facility] 1.2.840.114 [id number] 00:00:00 00:00:00 Outreach [facility] 350.1.13.10 [facility] 4.2.7.2.686 PAVCLARICEON [id number] 2020-08-15 2020-08-15 Orders Eller, 1.2.840.1 [id number] Methodi 00:00:00 00:00:00 Only Jose 21515.1.[address] 3.430.2.7 Hospit a .3.432448 l .8 2020-08-08 2020-08-08 [facility] 1.2.840.1 [id number] Methodi 14:26:21 23:59:00 Encounter Brigido 23021.1.[address] 3.430.2.7 Hospit a .3.578165 l .8 2020-08-08 2020-08-08 [facility] 1.2.840.1 [id number] Methodi 14:25:06 14:25:06 Encounter Brigido 71742.1.[address] 3.430.2.7 Hospit a .3.626355 l .8 2020-08-08 2020-08-08 Office Beasley, 1.2.840.1 [id number] Methodi 13:15:45 14:12:36 Visit Duarte Navarro 55001.1.1 326 s t 3.430.2.7 Hospit a .3.895866 l .8 2020-08-08 2020-08-08 Outpatient MARTINEZ, [facility] [id number] [place] 00:00:00 00:00:00 DUARTE [address] 2020-08-08 2020-08-08 Travel 1.2.840.1 1.2.678.962 0547 [id number] Methodi 00:00:00 00:00:[address] 3.430.2.7 0.2.7.3.698 spita .3.231488 084.8 l .8 2020-08-08 2020-08-08 Outpatient Sophia PASCUAL [facility] [id number] [place] 00:00:00 00:00:[address] 2020-08-08 2020-08-08 Outpatient Sophia PASCUAL [facility] 721 [id number] [place] 00:00:00 00:00:[address] 2020-08-08 2020-08-08 Outpatient MARTINEZ, [facility] [id number] 543 [place] 00:00:00 00:00:00 DUARTE [address] 2020-08-07 2020-08-07 Orders Martinez, 1.2.840.1 [id number] Methodi 00:00:00 00:00:00 Only Duarte Navarro 57784.1.1 049 s t 3.430.2.7 Hospit a .3.073211 l .8 2020-08-06 2020-08-06 Telephone Nikolai, 1.2.840.1 [id number] Methodi 00:00:00 00:00:[address] 3.430.2.7 Hospit a .3.866294 l .8 2020-08-06 2020-08-06 Travel 1.2.840.1 1.2.208.323 1534 [id number] Methodi 00:00:00 00:00:[address] 3.430.2.7 0.2.7.3.698 spita .3.497761 084.8 l .8 2020-06-28 2020-08-03 Office Pato Beasleypradeep Navarro 1.2.840.1 [id number] Methodi 13:43:59 14:00:21 Visit Maite Lau 50633.1.[address] 3.430.2.7 Hospit a .3.774888 l .8 2020-07-25 2020-07-25 Orders Martinez, 1.2.840.1 [id number] Methodi 00:00:00 00:00:00 Only Duarte Navarro 13535.1.1 815 s t 3.430.2.7 Hospit a .3.637313 l .8 2020-07-25 2020-07-25 Orders Daphnie, 1.2.840.1 [id number] Methodi 00:00:00 00:00:00 Only Jose 98973.1.[address] 3.430.2.7 Hospit a .3.474633 l .8 2020-07-25 2020-07-25 Orders Minor, Ajia 1.2.840.1 [id number] Methodi 00:00:00 00:00:[address] 3.430.2.7 Hospit a .3.672236 l .8 2020-07-16 2020-07-16 Telephone Sophia Pascual 1.2.840.1 [id number] Methodi 00:00:00 00:00:[address] 3.430.2.7 Hospit a .3.428810 l .8 2020-07-16 2020-07-16 Telephone Nikolai 1.2.840.1 [id number] [id number] Methodi 00:00:00 00:00:[address] 3.430.2.7 Hospit a .3.462288 l .8 2020-07-09 2020-07-13 Hospital Martinez, 1.2.840.1 [id number] Methodi 06:09:00 16:44:00 Encounter Duarte AzebGregoria 16704.1.[address] 3.430.2.7 Hospit a .3.040985 l .8 2020-07-09 2020-07-13 Inpatient MARTINEZ, [facility] [id number] [place] [address] 00:00:00 00:00:00 DUARTE [address] 2020-07-12 2020-07-12 Orders Nikolai, 1.2.840.1 [id number] Methodi 00:00:00 00:00:00 Only Tamara 95729.1.[address] 3.430.2.7 Hospit a .3.746436 l .8 2020-07-09 2020-07-09 [facility], 1.2.840.1 [id number] Methodi 07:30:00 23:59:00 Encounter Duarte AzebGregoria 13931.1.[address] 3.430.2.7 Hospit a .3.341375 l .8 2020-07-09 2020-07-09 Surgery Beasley, 1.2.840.1 [id number] Methodi 07:30:00 14:00:00 Duarte AzebGregoria 63868.1.1 338 s t 3.430.2.7 Hospit a .3.218031 l .8 2020-07-09 2020-07-09 Anesthesia Nilsa Greene 1.2.840.1 [id number] Methodi 07:27:00 13:32:00 Event Tiffany Dong 49374.1.[address] 3.430.2.7 Hospit a .3.684896 l .8 2020-07-09 2020-07-09 Travel 1.2.840.1 1.2.935.045 [id number] [id number] Methodi 00:00:00 00:00:[address] 3.430.2.7 0.2.7.3.698 Ho spita .3.723922 084.8 l .8 2020-07-05 2020-07-05 [facility] Sophia Pascual 1.2.840.1 [id number] Methodi 13:10:35 23:59:00 Encounter Brigido 51726.1.[address] 3.430.2.7 Hospit a .3.315018 l .8 2020-07-05 2020-07-05 Outpatient Sophia PASCUAL [facility] [id number] [place] 00:00:00 00:00:[address] 2020-07-04 2020-07-04 Travel 1.2.840.1 1.2.423.380 [id number] Methodi 00:00:00 00:00:[address] 3.430.2.7 0.2.7.3.698 Ho spita .3.630437 084.8 l .8 2020-06-28 2020-06-28 Pre-Admiss Martinez, 1.2.840.1 [id number] Methodi 16:08:07 17:08:07 ion Duarte Bowie. 45598.1.1 051 s t Testing 3.430.2.7 Hospit a .3.493890 l .8 2020-06-28 2020-06-28 Outpatient MARTINEZ [facility] [id number] [address] [place] 00:00:00 00:00:00 DUARTE [address] 2020-06-28 2020-06-28 [facility] [id number] 039 [place] 00:00:00 00:00:00 DUARTE [address] 2020-06-28 2020-06-28 [facility] [id number] [address] [place] 00:00:00 00:00:00 DUARTE [address] 2020-06-28 2020-06-28 Travel 1.2.840.1 1.2.799.054 [id number] [facility] 00:00:00 00:00:[address] 3.430.2.7 0.2.7.3.698 Ho spita .3.636955 084.8 l .8 2020-06-28 2020-06-28 Orders Judi, 1.2.840.1 [id number] [facility] 00:00:00 00:00:00 Only Maite [address]15.1.[address] 3.430.2.7 Hospit a .3.526113 l .8 2020-06-28 2020-06-28 Telephone Nikolai, 1.2.840.1 [id number] 2099 [facility] 00:00:00 00:00:[address] 3.430.2.7 Hospit a .3.938351 l .8 2020-06-25 2020-06-25 Travel 1.2.840.1 1.2.212.464 8709 [id number] [facility] 00:00:00 00:00:[address] 3.430.2.7 0.2.7.3.698 Ho spita .3.432728 084.8 l .8 2020-06-22 2020-06-22 Office Sophia Pascual 1.2.840.1 [id number] Methodi 13:44:02 14:37:42 Visit Brigido [address]28.1.[address] 3.430.2.7 Hospit a .3.828146 l .8 2020-06-22 2020-06-22 Outpatient Sophia PASCUAL [facility] [id number] [place] 00:00:00 00:00:[address] 2020-06-22 2020-06-22 Travel 1.2.840.1 1.2.873.020 [id number] Methodi 00:00:00 00:00:[address] 3.430.2.7 0.2.7.3.698 Ho spita .3.716536 084.8 l .8 2020-06-22 2020-06-22 Outpatient Sophia PASCUAL [facility] 732 [id number] [place] 00:00:00 00:00:[address] 2020-06-18 2020-06-18 Travel 1.2.840.1 1.2.192.446 7237 [id number] [facility] 00:00:00 00:00:[address] 3.430.2.7 0.2.7.3.698 Ho spita .3.553387 084.8 l .8 2020-05-18 2020-05-18 Orders Eller, 1.2.840.1 [id number] 2080 [facility]i 00:00:00 00:00:00 Only Jose 00476.1.[address] 3.430.2.7 Hospit a .3.901639 l .8 2020-05-18 2020-05-18 Orders Eller, 1.2.840.1 [id number] 2194 [facility] 00:00:00 00:00:00 Only Jose 74977.1.[address] 3.430.2.7 Hospit a .3.450277 l .8 2020-05-18 2020-05-18 Travel 1.2.840.1 1.2.180.633 8012 [id number] [facility] 00:00:00 00:00:[address] 3.430.2.7 0.2.7.3.698 Ho spita .3.569789 084.8 l .8 2020-05-03 2020-05-03 Orders Judi, 1.2.840.1 [id number] 2099 [id number] Methodi 00:00:00 00:00:00 Only Maite 02168.1.[address] 3.430.2.7 Hospit a .3.649764 l .8 2019-12-30 2019-12-30 Office Tirso Gonzalez [facility] 1.2.840.114 [id number] 10:26:42 11:21:11 Visit Madhu [facility] 350.1.13.10 CARE 4.2.7.2.686 CENTER AT [id number] LEESA [address] [place] [address] 2019-10-31 2019-10-31 Outpatient MARTINEZ [facility] [id number] 748 [place] 00:00:00 00:00:00 DUAR[address] 2019-10-31 2019-10-31 Outpatient MARTINEZ [facility] [id number] 702 [place] 00:00:00 00:00:00 DUARTE [address] 2019-10-31 2019-10-31 Outpatient MARTINEZ [facility] [id number] 719 [place] 00:00:00 00:00:[address]TE [address] 2019-10-31 2019-10-31 Outpatient MARTINEZ [facility] [id number] 719 [place] 00:00:00 00:00:00 [address]ARTE [address] 2019-10-31 2019-10-31 Outpatient MARTINEZ [facility] [id number] 719 [place] 00:00:00 00:00:00 DUARTE [address] Results Test Description Test Time Test Comments Results Result Sour e Comments CT Chest W 2020-07-17 EXAMINATION: CT CHEST Met hodist Contrast 4 W CONTRAST CLINICAL Hospi levi 23:02:17 HISTORY: 75 years Female R22.1 Localized swelling mass and lump neck, vascularized 1 cm mass adjacent to the right carotid artery seen on Doppler TECHNIQUE: Multiple axial images of the chest were obtained without contrast. Sagittal and coronal computerized reformatted images were also obtained. CT imaging was performed with iterative reconstruction techniques and/or automated exposure control to reduce radiation dose. COMPARISON:None IMPRESSION: Lower neck and thoracic inlet: There is a right thyroid nodule measuring 6 mm. Lungs and airways: Mild bilateral scattered groundglass opacities are nonspecific. Calcified right upper lobe granuloma is seen. Pleura: No pleural effusion or pneumothorax. Mediastinum and lymph nodes: No lymphadenopathy. Cardiovascular: The heart size is normal. No pericardial effusion. The thoracic aorta is normal in caliber. Upper abdomen: No suspicious abnormalities. Bones: No suspicious osseous lesions. Spinal hardware is seen which imparts artifact to the chest. Bones are osteopenic. Other: There is a small hiatal hernia. There is right hemidiaphragmatic elevation. SUMMARY:1.Mild bilateral nonspecific pulmonary ground glass opacities. 2.No definite mediastinal mass is seen. [id number] Interface, Radiology Results 08/08/2020 5:05 PM CST EXAMINATION: CT CHEST W CONTRASTCLINICAL HISTORY: 75 years Female R22.1 Localized swelling mass and lump neck, vascularized 1 cm mass adjacent to the right carotid artery seen on Doppler TECHNIQUE: Multiple axial images of the chest were obtained without contrast. Sagittal and coronal computerized reformatted images were also obtained. CT imaging was performed with iterative reconstruction techniques and/or automated exposure control to reduce radiation dose. COMPARISON:NoneIMPRESS ION:Lower neck and thoracic inlet: There is a right thyroid nodule measuring 6 mm.Lungs and airways: Mild bilateral scattered groundglass opacities are nonspecific. Calcified right upper lobe granuloma is seen.Pleura: No pleural effusion or pneumothorax.Mediastin um and lymph nodes: No lymphadenopathy. Cardiovascular: The heart size is normal. No pericardial effusion. The thoracic aorta is normal in caliber.Upper abdomen: No suspicious abnormalities. Bones: No suspicious osseous lesions. Spinal hardware is seen which imparts artifact to the chest. Bones are osteopenic.Other: There is a small hiatal hernia. There is right hemidiaphragmatic elevation.SUMMARY:1.Mi ld bilateral nonspecific pulmonary ground glass opacities.2.No definite mediastinal mass is seen.[id number] CT Soft Tissue 2020-07-17 EXAMINATION: CT SOFT [facility] Neck W Contrast 4 TISSUE NECK W CONTRAST Hospital 22:37:50 CLINICAL HISTORY: R22.1 Localized swelling mass and lump neck, vascularized 1 cm mass adjacent to the right carotid artery seen on Doppler COMPARISON: None TECHNIQUE: Postcontrast enhanced imaging through the neck was performed from the upper chest through the skull base with coronal and sagittal reconstructed images. CT imaging was performed with iterative reconstruction technique and/or automated exposure control to reduce radiation dose. FINDINGS: Beam hardening artifact from dental filling, limits the evaluation at the oral cavity. The base of tongue appears unremarkable. The pharyngeal mucosa is symmetric in appearance and enhancement. The laryngeal structures are symmetric and unremarkable. No prevertebral soft tissue swelling identified. The parotid and submandibular glands appear normal bilaterally. No pathologically enlarged cervical, supraclavicular, or mediastinal lymph nodes identified. 1 cm thyroid nodule on the right, no further evaluation needed. Normal three-vessel branching of the aortic arch is noted. The carotid and vertebral arteries are patent. Nonspecific linear filling defect at the left proximal ICA, just distal to the bulb (series 307 image 93). No significant periodontal disease identified. The paranasal sinuses and mastoid air cells are clear. Bilateral eye lens replacement changes. The orbital structures are symmetric and otherwise unremarkable. Limited evaluation of the intracranial structures reveals no suspicious abnormality. No midline shift or ventriculomegaly identified. No suspicious osseous lesions are identified. Decreased intervertebral space throughout the cervical spine. Posterior disc osteophyte complex results in mild multilevel canal stenosis more significant at the mid cervical spine. Degenerative foraminal narrowing, severe right at C3-4 and C4-5 and moderate bilateral at C5-6. Partial visualized posterior fixation at the thoracic spine. Calcified granuloma at the right lung apex The remaining lung apices are clear. IMPRESSION: 1 cm right thyroid nodule, no further evaluation needed. No other sizable neck masses or lymphadenopathy. Nonspecific linear filling defect at the left proximal ICA, may represent a carotid web. [id number] Interface, Radiology Results Incoming - 08/08/2020 4:40 PM CST EXAMINATION: CT SOFT TISSUE NECK W CONTRASTCLINICAL HISTORY: R22.1 Localized swelling mass and lump neck, vascularized 1 cm mass adjacent to the right carotid artery seen on Doppler COMPARISON: NoneTECHNIQUE: Postcontrast enhanced imaging through the neck was performed from the upper chest through the skull base with coronal and sagittal reconstructed images. CT imaging was performed with iterative reconstruction technique and/or automated exposure control to reduce radiation dose.FINDINGS:Beam hardening artifact from dental filling, limits the evaluation at the oral cavity.The base of tongue appears unremarkable. The pharyngeal mucosa is symmetric in appearance and enhancement. The laryngeal structures are symmetric and unremarkable. No prevertebral soft tissue swelling identified. The parotid and submandibular glands appear normal bilaterally.No pathologically enlarged cervical, supraclavicular, or mediastinal lymph nodes identified. 1 cm thyroid nodule on the right, no further evaluation needed. Normal three-vessel branching of the aortic arch is noted. The carotid and vertebral arteries are patent. Nonspecific linear filling defect at the left proximal ICA, just distal to the bulb (series 307 image 93).No significant periodontal disease identified. The paranasal sinuses and mastoid air cells are clear. Bilateral eye lens replacement changes. The orbital structures are symmetric and otherwise unremarkable. Limited evaluation of the intracranial structures reveals no suspicious abnormality. No midline shift or ventriculomegaly identified. No suspicious osseous lesions are identified.Decreased intervertebral space throughout the cervical spine. Posterior disc osteophyte complex results in mild multilevel canal stenosis more significant at the mid cervical spine. Degenerative foraminal narrowing, severe right at C3-4 and C4-5 and moderate bilateral at C5-6. Partial visualized posterior fixation at the thoracic spine.Calcified granuloma at the right lung apex The remaining lung apices are clear.IMPRESSION:1 cm right thyroid nodule, no further evaluation needed.No other sizable neck masses or lymphadenopathy.Nonspe cific linear filling defect at the left proximal ICA, may represent a carotid web.[id number] OR [place] > I Hour EXAMINATION: OR [place] > [place] 4 1 HOUR [facility] 21:50:39 fluoroscopy was requested in OR. Location: [facility] OR 19 Procedure: LUM FUSION Start: 1015 End: 1230 Fluoro Time: 3.1SEC mGy: 37.87 Tech: JV SCANS2: IMPRESSION: Intraoperative fluoroscopic images. Radiologist was not present during the examination.Separate operative report will be issued by the physician performing the procedure. [id number] Interface, Radiology Results 07/19/2020 3:53 PM CST EXAMINATION: OR [place] > 1 HOURC-arm fluoroscopy was requested in OR. Location: [facility] 3 OR 19 Procedure: LUM FUSION Start: 1015 End: 1230 Fluoro Time: 3.1SEC mGy: 37.87 Tech: JV SCANS2: IMPRESSION:Intraoperat james fluoroscopic images. Radiologist was not present during the examination.Separate operative report will be issued by the physician performing the procedure.[id number] Surgical pathology request 2020-07-11 15:52:52 Test Item Value Reference Range Interpretation Comme nts Case number (test code = [id number]) [id number] Surgical pathology report (test code = See link below for PDF Lab R eport 0263) Result status (test code = 7279863) This is Final Report for [id number] [facility] Hospital[facility]ra[facility] [id number] 12:04:55 INTRAOPERATIVE NEURO MONITORING Patient Name: Nina Harrison Date of : 1945 Gender: female Surgical Procedure: L5-S1 ALIF/posterior revision OR: [place] Room #: 19Tech #1: Blanche Melo Time: 24End Time: 1228Total Time (in hours): 4.1 Date of Service: 1Physician IOM Time: 4 HoursProcedure(s) performed During IOM: 89717, 45388, 86663EJS94: M4716 Stimulation ParametersUlnar nerves individually stimulated at the wrist. Rate 4.7 Hz, Intensity 20-60 mA, Duration 0.3 ms, Filters 30-500 Hz, Notch Off Posterior Tibial nerves individually stimulated at the ankle., Rate 4.7 Hz, Intensity 30 - 80 mA, Duration 0.3 ms, Filters 30-500 Hz, Notch OffMotor strip stimulated anterior to C3 and C4 with alternating polarities, Intensity 500 V Train Rate4-5 MANAN 2-3 ms, Filter 30-2KHz Notch off Technical SummaryIntraoperative neurophysiological monitoring was performed using a combination of upper and lower extremity somatosensory evoked potentials (SEP), transcranial electrical motor potentials (TcMEP) and running electromyography (EMG) of the innervated muscle groups. A real time connection was established by the monitoring technologist with the examining neurologist throughout the operative procedure. Lower extremity somatosensory evoked potentials were recorded peripherally at the popliteal fossa and centrally at the cervical and cortical levels following posterior tibial nerve stimulation at the ankle. Upper extremity somatosensory evoked potentials were recorded centrally at the cervical and cortical levels following ulnar nerve stimulationat the wrist. There were no significant surgically related changes in amplitude or latency to the cervical and/or cortical SEP responses throughout the surgical procedure. TcMEPs were recorded peripherally from the upper and lower extremities following alternating polarity motor strip stimulation. Post-induction TcMEP responses to motor cortex stimulation were clear and reproducible bilaterally. No significant surgically related changes in amplitude or latency of the TcMEPs were noted throughout thesurgical procedure. At closing responses were judged to be essentially unchanged from those of post positioning baselines. Free running EMG of the innervated muscle groups was monitored continuously throughout the operative procedure with no sustained neurotonic discharges noted. ConclusionThese results suggest the absence of a significant delay or reduction in amplitude of cervical and cortical SEP responses suggest the absence of untoward, secondary changes to posterior spinal cord function as a result of this surgical procedure. The absence of sustained neurotonic discharges on free- running EMG suggests that the monitored nerve roots remained undisturbed during this procedure. All values were reported to the surgeon in real time.[facility] HospitalUrine [id number] 08:21:06 Test Item Value Reference Range Interpretation Comments Urine culture (test code = SEE COMMENT [id number]) [facility] 1 [id number] 07:23:58EXAMINATION: XR CHEST 1 PORTABLE CLINICAL HISTORY: elevated temp COMPARISON: Yesterday IMPRESSION:Interval extubation. Central line unchanged. Better inspiratory depth with better aeration in thelungs, otherwise stable. [id number] Interface, Radiology Results Incoming 07/11/2020 1:27 AM CST EXAMINATION: XR CHEST 1 PORTABLECL INICAL HISTORY: elevated tempCOMPARISON: YesterdayIMPRESSION:Interval extubation. Central line unchanged. Better inspiratory depth with better aeration in the lungs, otherwise stable.[id number] [id number] 19:39:00 Test Item Value Reference Range Interpretation Comments Product name (test code Red Blood Cells -1, = 25) Leukored Unit number (test code = [id number]) Product code (test code K3539O92 = 3092) Dispense status (test Transfused code = 24) Blood expiration date (test code = 302) Blood type code (test code = 308) Blood type (test code = B POSITIVE 1314) Compatibility (test code Compatible = 6400) [facility] Lumbar Spine 1 [id number] 19:04:18EXAMINATION: XR LUMBAR SPINE 1 CLINICAL HISTORY: Intraoperative visualization. COMPARISON: Scol iosis series on 06/28/2020. IMPRESSION: Single intraoperative lateral radiograph of the lumbar spine with 2 different filters were obtained. Interval postoperative changes with revision of thoracolumbosacroiliac fusion with new bilateral sacral and sacroiliac screws and L5-S1 interbody cage. Extension of posterior paraspinal rods at sacral level. No pointing instrument is identified. [id number] Interface, Radiology Results Incoming 07/09/2020 1:07 PM CST EXAMINATION: XR LUMBAR SPINE 1 CLINICAL HISTORY: Intraoperative visualization.COMPARISON: Scoliosis series on 06/28/2020.IMPRESSION:Single intraoperative lateral radiograph ofthe lumbar spine with 2 different filters were obtained.Interval postoperative changes with revisionof thoracolumbosacroiliac fusion with new bilateral sacral and sacroiliac screws and L5-S1 interbodycage. Extension of posterior paraspinal rods at sacral level.No pointing instrument is identified.[id number] HospitalArterial blood gas, corrected 2020-07-09 17:57:25 Test Item Value Reference Range Interpretation Comments pH, arterial (test code 7.35-7.45 L = 2744-1) pCO2, arterial (test See_Comment H [Autom ated message] code = 2019-8) The system [employer] generated this result transmitted ref erence range: 35 - 45 mmHg. The reference r jourdan was not used to interpret this result as normal/abnor mal. pO2, arterial (test code See_Comment H [A utomated message] = 2703-7) The system [employer] generated this result transmitted ref erence range: 80 - 90 mmHg. The reference r jourdan was not used to interpret this result as normal/abnor mal. Temperature, Celsius Degrees C (test code = 8310-5) O2 saturation, arterial 100 % 95-100 (test code = 2708-6) pH, arterial corrected (test code = 33588-8) pCO2, arterial corrected mmHg (test code = 15467-6) pO2, arterial corrected mmHg (test code = 27695-8) Base excess, arterial See_Comment [Auto mated message] (test code = 1925-7) The [facility] tem which generated this result transmitted ref erence range: -2 - 2 m Eq/L. The reference r jourdan was not used to interpret this result as normal/abnor mal. Lab Interpretation (test Abnormal code = 91001-5) [facility] HospitalGlucose level, [id number] 17:57:25 Test Item Value Reference Range Interpretation Comments Glucose, syringe (test code = 133 mg/dL 65-99 H 2345-7) Lab Interpretation (test code = Abnormal 25937-8) [facility] HospitalHemoglobin, [id number] 17:57:25 Test Item Value Reference Range Interpretation Comments Hemoglobin, syringe (test code = 11.0 g/dL 12.0-16.0 L 718-7) Lab Interpretation (test code = Abnormal 65639-0) [facility] HospitalIonized calcium, [id number] 17:57:25 Test Item Value Reference Range Interpretation Comments Ionized calcium, arterial (test 1.10 mmol/L 1.11-1.32 L code = 35217-2) Lab Interpretation (test code = Abnormal 49270-1) [facility] HospitalLactic acid, [id number] 17:57:25 Test Item Value Reference Range Interpretation Comments Lactic acid, syringe (test code = 2.4 mmol/L 0.5-2.2 H 21659-5) Lab Interpretation (test code = Abnormal 62452-5) [facility] HospitalPotassium, [id number] 17:57:25 Test Item Value Reference Range Interpretation Comments Potassium, syringe See_Comment [Automat ed message] The (test code = 2007) system wh ich generated this result tra nsmitted reference range : 3.5 - 5.0 mEq/L. The refe rence range was not used to interpret this result as normal/abnormal . [facility], [id number] 17:57:25 Test Item Value Reference Range Interpretation Comments Sodium, syringe (test See_Comment [Auto mated message] The code = 2947-0) system which generated this result tra nsmitted reference range : 135 - 148 mEq/L. The refe rence range was not used to interpret this result as normal/abnormal . [facility] HospitalCentral [id number] 14:25:38Nilsa Greene MD 07/09/2020 8:26 AMCentral line Performed by: anesthesiologistAnesthesiologist: Nilsa Greene MDAuthorized by: Nilsa Greene MD Preprocedure:patient identified, IV checked, siteand side verified, risks and benefits discussed, procedure verified, surgical consent complete, patient position confirmed, monitors and equipment checked, pre-op evaluation complete and timeout performed prior to procedure MSBT: antiseptic used during central venous catheter insertion, all elements of maximal sterile barrier technique followed, hand hygiene performed prior to central venous catheter insertion, cap/gown used by other personnel during central venous catheter insertion, solutions labeled and all ports not used during insertion clamped Indications: Indications: Central pressure mo nitoring and vascular accessAnesthesia: Anesthesia: GeneralProcedure details: Patient position: Trendelenburg Catheter Type: Double lumen Catheter Size: 8 Fr Catheter Site: subclavian vein Catheter site laterality: Left Pre- procedure: Landmarks identified Ultrasound guidance used: Yes Ultrasound image saved: No Pressure transduced: Pressure transduced prior to dilator Numberof attempts: 1 Successful placement: Yes Guidewire removal: Guidewire removal is confirmed Guidewire removal witnessed by: French Anderson RNPost- procedure: Post-procedure: line sutured, sterile dressing applied per protocol and ports flushed with saline Post-procedure: Blood cleaned with CHG and sterile caps on all hubs Assessment: Free fluid flow, blood return through all ports, placement verified by x-ray and no pneumothorax on x-ray Patient tolerance: Patient tolerated the procedure well with no immediate complications [facility] [id number] 14:25:20Nilsa Greene MD 07/09/2020 8:26 AMArterial line Performed by: anesthesiologistAnesthesiologist: Nilsa Greene MDAuthorized by: Nilsa Greene MD Pre-procedure: patient identified, IV checked, site and side verified, risks and benefits discussed, procedure verified, surgical consent complete, patient position confirmed, monitors and equipment checked, pre-op evaluation complete and timeout performed prior to procedure MSBT: antiseptic used, all elements of maximal sterile barrier technique followed, hand hygiene performed, cap/gown used by other personnel and solutions labeled Indications: Indications: multiple ABGs and hemodynamic monitoring Anesthesia: Anesthesia: GeneralProcedureDetails: Arterial Line placement: Placed post induction Line placement site: RadialLine placement side: Right Arterial line gauge: 20 GNumber of attempts: 1 Ultrasound guidance used: Yes Post-procedure: Post-procedure: Sterile dressing applied Post procedure circulation, sensation, movement: Unable to assess Patient tolerance: Patient tolerated the procedure well with no immediate complications [facility]2021-01-25 14:24:29Nilsa Greene MD 07/09/2020 8:26 AMAirway Performed by: anesthesiologistAnesthesiologist: Nilsa Greene MDAuthorized by: Nilsa Greene MD Preoxygenated with 100% O2: Yes C-spine Precautions Maintained Throughout: No Mask Ventilation: Easy maskFinal Airway Type: Endotracheal airwayFinal Endotracheal Airway: ETTTechnique Used: Direct laryngoscopyBlade Type: MillerLaryngoscope Blade/Videolaryngoscope Blade Size: 2ETT Size (mm): 7.0Measured from: TeethETT to Teeth (cm): 20Placement Kelly ified by: CO2 detection Laryngoscopic view: Grade I - full view of glottisRapid Sequence Induction(RSI): No Modified RSI: No Number of Attempts at Approach: 1 Airway placed atraumatically. Teeth gums and lips in same condition as before induction.[facility] carotid [id number] 00:06:00 [facility] Carotid Artery Duplex Report [address] [place] [address] For quality assurance specialist purposes, the categorization of the degree of the stenosis of this exam is based on criteria described in the IAC carotid stenosis grading white paper( www.intersocietal.org/Vascular) and Matthew Wetzel, Maira Burnett, et al. Carotid artery stenosis: gaines-scale and Doppler US diagnosis--Society of Radiologists in Ultrasound Consensus Conference. Radiology. 2003 Nov; 229(2):340-6. Pat.Name: NINA HARRISON Pat.ID: [id number] .Date: 07/05/2020 Refer.MD: BRIGIDO PASCUAL MD Exam Time: 1:48:00 PM Study Type:Carotid Height: 60in Weight: 125lb BSA: 1.53 m2 Age: 8 1945,75Y Sex: FEMALE Sonogrphr: CATHY Joy Pat. Stat.:Outpatient Tape Vol: MERARI/, CPT - 4: 88262 Echo Event ID:[id number] Order ID: [id number] Reason for Study:Carotid bruit; pre-op cardiovascular exam.Procedures: Colorflow, Grayscale/2D, Pulsed wave DopplerRace: SUMMARY: --------PHYSICAL ASSESSMENT Blood Pressure Right 149/69 Left 138/56 CAROTID ARTERYSCANRIGHT: There is smooth intimal lining in the common carotid artery.The external carotid artery is clear. There is hard plaque noted inthe bulb extending into the proximal internal carotid artery.Colorflow is minimally disturbed. The mid internal carotid artery istortuous. There are two non vascularized structures noted in the rightneck area with the largest measuring 0.67 x 0.54 cm. There is avascularized structure in the neck area measuring 0.97 x 0.57 cm. LEFT: There is smooth intimal liningin the common carotid artery.There is hard plaque noted in the bulb extending into the proximalinternal and external carotid artery.The mid internal carotid arteryis tortuous. Colorflow is minimally disturbed. PRELIMINARY FINDINGS1. <50% stenosis in the internal carotid arteries, bilaterally. 2. <50% stenosis in the left external carotid artery.3. Antegrade flow in the vertebral arteries, bilaterally. 4. Mid internal carotid arteries are tortuous, bilaterally. 5. There are two non vascularized structures in the right neck withthe largest measuring 0.67 x 0.54 cm.6. There is a vascularized structure in the right neck area measuring0.97 x 0.57 cm. PHYSICIAN INTERPRETATION Bilateral carotid duplex examination demonstrated atheroscleroticplaques in the bulbs. Less than 50% stenosis in the bulband internal carotid artery,bilaterally.Both vertebral arteries are antegrade.Incidental thyroid findings: There are two non vascularized structures in the right neck with thelargest measuring 0.67 x 0.54 cm.(cyst) There is a vascularized structure in the right neck area measuring0.97 x 0.57 cm. (solid nodule - see attached image) FINDINGS: ---------Carotid Findings: Right Left Verteb.FlwAntegrade Antegrade Subclavian Triphasic Triphasic MEASUREMENTS: ----- DOPPLERLeft CCA Dist CCA Dist EDV 21 cm/s CCA Dist PSV 72.1 cm/sLeft CCA Mid CCA Mid EDV 15.9 cm/s CCA Mid PSV 63.6 cm/sLeft CCA Prox CCA Prox EDV 14.2 cm/s CCA Prox PSV 67 cm/sLeft ECA Prox ECA Prox EDV 5.1 cm/s ECA Prox PSV 65.9 cm/sLeft ICA Dist ICA Dist EDV 28.4 cm/s ICA Dist PSV 119 cm/sLeft ICA Mid ICA Mid EDV 32.9 cm/s ICA Mid PSV 116 cm/sLeft ICA Prox ICA Prox EDV 23.8 cm/s ICA Prox PSV 85.2 cm/sLeft Vertebral Vertebral EDV 10.2 cm/s Vertebral PSV 52 cm/sRight CCA Dist CCA Dist EDV 16.2 cm/s CCA Dist PSV 60.9 cm/sRight CCA Mid CCA Mid EDV 14.5 cm/s CCA Mid PSV 76.7 cm/sRight CCA Prox CCA Prox EDV 11.9 cm/s CCA Prox PSV 80.9 cm/sRight ECA Prox ECA Prox EDV 6.4 cm/s ECA Prox PSV 73.3 cm/sRight ICA Dist ICA Dist EDV 20.9 cm/s ICA Dist PSV 68.1 cm/sRight ICA Mid ICA Mid EDV 19.2 cm/s ICA Mid PSV 56.6 cm/sRight ICA Prox ICA Prox EDV 20.4 cm/s ICA Prox PSV 66 cm/sRight Vertebral Vertebral EDV 11.9 cm/s Vertebral PSV 54.5 cm/sRight SCA Prox SCA Prox PSV 104 cm/s Left SCA Prox SCA Prox PSV 128 cm/s Right ICA/CCA Ratio ICA/CCA PSV 0.86 Left ICA/CCA Ratio ICA/CCA PSV 1.34 Signed 07/05/2020 06:06 PMKevin Perry MD, RPVIInterface, Radiology Results In - 07/05/2020 6:07 PM CST [facility] Carotid Artery Duplex Report [id number], [address], [place] [address] For quality assurance specialist purposes, the categorization of the degree of the stenosis of this exam is based on criteria described in the IAC carotid stenosisgrading white paper( www.intersocietal.org/Vascular) and Kip Wetzel., Maira Burnett, et al. Carotid ar dominga stenosis: gaines-scale and Doppler US diagnosis--Society of Radiologists in Ultrasound Consensus Conference. Radiology. 2003 Nov; 229(2):340-6. Pat.Name: NINA HARRISON Pat.ID: [id number] .Date: 07/05/2020 Refer.MD: BRIGIDO PASCUAL MD Exam Time: 1:48:00 PM Study Type:Carotid Height: 60in Weight: 125lb BSA: 1.53 m2 Age: 8 1945,75Y Sex: FEMALE Sonogrphr: CATHY Joy Pat. Stat.:Outpatient Tape Vol: MERARI/, CPT - 4: 99709 Echo Event ID:[id number] Order ID: [id number] Reason for Study:Carotid bruit; pre-op cardiovascular exam.Procedures: Colorflow, Grayscale/2D, Pulsed wave DopplerRace: SUMMARY:----- PHYSICAL ASSESSMENT Blood Pressure Right 149/69 Left 138/56 CAROTID ARTERY SCANRIGHT: There is smooth intimal lining in the common carotid artery.The external carotid artery is clear. There is hard plaque noted inthe bulb extending into the proximal internal carotid artery.Colorflow is minimally disturbed. The mid internal carotid artery istortuous. There are two non vascularized structures noted in the rightneck area with the largest measuring 0.67x 0.54 cm. There is avascularized structure in the neck area measuring 0.97 x 0.57 cm. LEFT: There is smooth intimal lining in the common carotid artery.There is hard plaque noted in the bulb extending into the proximalinternal and external carotid artery.The mid internal carotid arteryis tortuous. Colorflow is minimally disturbed. PRELIMINARY FINDINGS1. <50% stenosis in the internal carotid arteries, bilaterally. 2. <50% stenosis in the left external carotid artery.3. Antegrade flow in the vertebral arteries, bilaterally. 4. Mid internal carotid arteries are tortuous, bilaterally. 5. There are two non vascularized structures in the right neck withthe largest measuring 0.67 x 0.54 cm.6. There is a vascularized structure in the right neck area measuring0.97 x 0.57 cm. PHYSICIAN INTERPRETATION Bilateral carotid duplex examination demonstrated atheroscleroticplaques in the bulbs. Less than 50% stenosis in the bulb and internal carotid artery,bilaterally.Both vertebral arteries are antegrade.Incidental thyroid findings: There are two non vascularized structures in the right neck with thelargest measuring 0.67 x 0.54 cm.(cyst) There is a vascularized structure in the right neck area measuring0.97 x 0.57 cm. (solid nodule - see attached image) FINDINGS:---- Carotid Findings: Right LeftVerteb.Flw Antegrade Antegrade Subclavian Triphasic Triphasic MEASUREMENTS: DOPPLERLeft CCA Dist CCA Dist EDV 21 cm/s CCA Dist PSV 72.1 cm/sLeft CCA Mid CCA Mid EDV 15.9 cm/s CCA Mid PSV63.6 cm/sLeft CCA Prox CCA Prox EDV 14.2 cm/s CCA Prox PSV 67 cm/sLeft ECA ProxECA Prox EDV 5.1 cm/s ECA Prox PSV 65.9 cm/sLeft ICA Dist ICA Dist EDV 28.4 cm/s ICA Dist PSV 119 cm/sLeft ICA Mid ICA Mid EDV 32.9 cm/s ICA Mid PSV 116 cm/sLeft ICA Prox ICA Prox EDV 23.8 cm/s ICA Prox PSV 85.2 cm/sLeft Vertebral Vertebral EDV 10.2 cm/s Vertebral PSV 52 cm/sRight CCA Dist CCA Dist EDV 16.2 cm/s CCA Dist PSV 60.9 cm/sRight CCA Mid CCA Mid EDV 14.5 cm/s CCA Mid PSV 76.7 cm/sRight CCA Prox CCA Prox EDV 11.9 cm/s CCA Prox PSV 80.9 cm/sRight ECA Prox ECA Prox EDV 6.4 cm/s ECA Prox PSV 73.3 cm/sRight ICA Dist ICA Dist EDV 20.9 cm/s ICA Dist PSV 68.1 cm/sRight ICA Mid ICA Mid EDV 19.2 cm/s ICA Mid PSV 56.6 cm/sRight ICA Prox ICA Prox EDV 20.4 cm/s ICA Prox PSV 66 cm/sRight Vertebral Vertebral EDV 11.9 cm/s Vertebral PSV 54.5 cm/sRight SCA Prox SCA Prox PSV 104 cm/s Left SCA Prox SCA Prox PSV 128 cm/s Right ICA/CCA Ratio ICA/CCA PSV 0.86 Left ICA/CCA Ratio ICA/CCA PSV 1.34 Signed 07/05/2020 06:06 Joe Perry MD, RPVIMethFranciscan Health Crown PointSwxmrrkhSOJB-VlA-6 (COVID-19) RNA [Presence] in Respiratory specimen by GREER with probe [id number] 19:28:01 Test Item Value Reference Range Interpretation Comments SARS-CoV-2 (COVID-19) RNA Not detected Not-Detected [Presence] in Respiratory specimen by GREER with probe detection (test code = 90091-4) ECG 12 [id number] 03:15:51 Test Item Value Reference Range Interpretation Comments Ventricular rate (test code = 253) Atrial rate (test code = 255) CA interval (test code = 266) QRSD interval (test code = 260) QT interval (test code = 264) QTC interval (test code = 265) P axis 1 (test code = 267) QRS axis 1 (test code = 268) T wave axis (test code = 270) EKG impression (test Sinus bradycardia-ST code = 273) abnormality, possible digitalis effect-Abnormal ECG-In automated comparison with ECG of 28-JAN-2011 11:04,-No significant change was found- [facility]- DXA BD LARON W VERT [id number] 14:34:00Patient Name: NINA HARRISON Unit No: [id number] EXAMS: CPT CODE: [id number] DXA BD LARON W VERT ASSESS 25908 Bone mineral density study 01/30/2020. CLINICAL INDICATION: Osteoporosis. COMPARISON: None available LOCATION: W1 FINDINGS: Evaluation of the proximal left and right femurs and lumbar spine was performed utilizing a [employer] bone densitometer. The proximal left femur bone mineral density is 0.654gm/cm2, the T-score is -2.8, and the Z-score is - 0.9. The proximal right femur bone mineral density is 0.622gm/cm2, the T-score is -3.1, and the Z-score is -1.1. The lumbar spine total bone mineral density is 1.069gm/cm2, the T-score is 1.0, and the Z-score is 1. IMPRESSION: 1. WHO classification of osteopenia for the lumbar spine, with an increased risk of fracture. WHO classification of osteoporosis for the bilateral proximal femurs, with a high risk of fracture. at 1434 Reported and signed by: EDMUNDO BASS M.D. CC: Jae De Leon MD Technologist: Jose Goodson Trscr Dt/Tm: 01/30/2020 (1434) by:[email or web address] Printed Date/Time: 01/30/2020 (1436) Name: NINA HARRISON [facility] OP Imaging Phys: [id number] - Jae De Leon : 6Age: 74 Sex: F [place], [place] [facility] Exam Date: 01/30/2020 Status: REG CLI PH: FAX: PAGE 1 Signed Report- XR SPINE 2-3 VWS (SCOLIOSIS)2020-01-30 13:01:00Patient Name: NINA HARRISON Unit No: [id number] EXAMS: CPT CODE: [id number] XR SPINE 2-3 VWS (SCOLIOSIS) 21641 EXAM: Scoliosis series Location code: A1 HISTORY: SCOLIOSIS COMPARISON: None available FINDINGS: Vertical fusionrods are present from the upper thoracic region followed to the L5 level. There are are associated bilateral pedicle screws at the T8, T12, L3, L4 and L5 levels. There are left-sided pedicle screws at the T10 and L2 levels. Vertical charline on the left extends to the T3-T4 level. Vertical charline on the right extends to the T6 level. There is dextro convex curvature of the upper/mid thoracic spine centered at T6 measuring approximately 23 degrees. Thereis levoconvexed curvature centered at L3-L4 measuring 9 degrees. Vertebral body heightsare grossly maintained. There is grade 2 anterolisthesis of L5 on S1. Please correlate with CT lumbar spine. The thoracic kyphosis and lumbar lordosis are otherwise maintained. IMPRESSION: 1. There is dextroconvex curvature of the thoracic spine centered at T6 level measuring 23 degrees and levoconvex curvature centered at L3-L4 measuring 9 degrees. 2. Posterior fusion throughout the thoracic and lumbar spine as discussed above. at 1301 Reported and signed by: RYAN DAIGLE M.D. CC: Jae De Leon MD Technologist: Jose Siddiqui Time: DAP (Gy m2): Air Kerma (mGy): Trscr Dt/Tm: 01/30/2020 (1301) by:[email or web address] Printed Date/Time: 01/30/2020 (8506) Name: NINA HARRISON [facility] Phys: LUIZA - Jae De Leon [address] : 1945 Age: 74 Sex: [place] [address] [facility] Exam Date: 01/30/2020 Status: REG CLI PH: FAX: PAGE 1 Signed Report- CT L-SPINE W/O [id number] 12:57:00Patient Name: NINA HARRISON Unit No: [id number] EXAMS: CPT CODE: [id number] CT L-SPINE W/O CONTRAST 56684 Exam: CT of the lumbar spine without contrast Location: A1 HISTORY: , BACK PAIN/SCOLIOSIS, COMPARISON: None available TECHNIQUE: Axial images of the lumbar spine were obtained without contrast. Images were reformatted tocreate coronal and sagittal reconstructions . One or more of the following dose reduction techniques were used: Automated exposure control, adjustment of the mA and/or kV according to patient size, and/or utilization of iterative reconstruction technique. DLP: 687 mGy-cm. FINDINGS: There is posterior fusion of the thoracolumbar spine followed to the L5 level. There are bilateral pedicle screws at the T12, L3, L4 and L5 levels. There there are left-sided pedicle screws at the T10 and L2 levels. Vertical fusion rods extend from the thoracic region to the L5 level. There is likely bridging osseous fusion of posterior elements notably from L1 through L5. There is lucency adjacent to bilateral pedicle screws at L5 suggesting hardware loosening. There is no acute fracture or dislocation. There is grade 2 anterolisthesis of L5 on S1 secondary to severe facet arthropathy.There is fixed grade 1 anterolisthesis at L4-L5. There is mild levoconvexed curvature of the l umbar spine centered at L3-L4. Vertebral body heights are otherwise maintained. There is mild osteopenia. There is acquired fusion of the disc spaces from T11-T12 through L3-L4. There is atrophy of paraspinal muscles. Diverticula are present within the sigmoid colon. T10- T11 through L2-L3: Posterior fusion at these levels. The discs are normal in configuration. There is no canal or foraminal stenosis. L3- L4: Posterior fusion. There is hypertrophy of fused facet joints and mild spondylotic ridging eccentric to the right. Thereis mild right foraminal narrowing. No central canal stenosis. L4-L5: Posterior fusion. Fixed grade 1 anterolisthesis with pseudobulge measuring 3 to 4 mm. There is hypertrophy of unfused facet joints. There is mild left and moderate right foraminal narrowing.There is there is mild central canal stenosis. L5-S1: Grade 2 anterolisthesis secondary to severe facet arthropathy. There is prominent lucency adjacent to the bilateral pedicle screws at the L5 level. There is possible shift of the pedicle screws into the neural foramina which further contributes to severe foraminal narrowing. There is moderate canal stenosis. Name: NINA HARRISON [facility] Phys: FAISALA. - Jae De Leon [address] : 1945 Age: 74 Sex: [place] [address] [facility]: [facility] Exam Date: 01/30/2020 Status: REG CLI PH: FAX: PAGE 1 Signed Report (CONTINUED) Patient Name: NINA HARRISON Unit No: [id number] EXAMS: CPT CODE: [id number] CT L-SPINE W/O CONTRAST 79973 <Continued> IMPRESSION: 1. Posterior fusion of the thoracal lumbar spine extending from the thoracic region to the L5 level. 2. There is lucency adjacent to the pedicle screws at I3wpcqx partly extend into the neural foramina compatible with hardware loosening. 3. Grade 2 anterolisthesis of L5 on S1 secondary to severe facet arthropathy further contributing to severe foraminal narrowing and moderate canal stenosis. 4. Fixed grade 1 anterolisthesis at L4-L5 producing mild to moderate foraminal narrowing worse on the right and mild central canal stenosis. Facet joints are incompletely fused. 5. No acute fractureor dislocation. 6. Mild levoconvex curvature of the lumbar spine centered at L3-L4. at 1257 Reported and signed by: RYAN DAIGLE M.D. CC: Jae De Leon MD Technologist: Eloy Case CTDI: 15.06 DLP: 687 Trscr Dt/Tm: 01/30/2020 (1257) by:Sydnie Printed Date/Time: 01/30/2020 (1300) Name: NINA HARRISON [facility] Phys: FAISALA. - Jae De Leon [address] : [birth year] Age: 74 Sex: [place] [address] Loc: [facility] Exam Date: 01/30/2020 Status: REG CLI PH: FAX: PAGE 2 Signed ReportRAD, SPINE, SCOLIOSIS STUDY, 2 OR 3 [id number] 14:41:00Reason for Exam:->m43.17, m51.36FINAL REPORT Technique: Frontal and lateral views of the total [...] 2 anterolisthesis of L5 on S1. Signed: Josy Championeport Verified Date/Time: 05/31/2019 14:41:46 Reading Location: [facility] ER Reading Room
--- NOTE | 2021-02-06 10:00 | RAD REPORT ---
EXAM DESCRIPTION: CT - Stone Protocol - 02/06/2021 9:36 am CLINICAL HISTORY: FLANK PAIN COMPARISON: Abdomen Pelvis W/Wo Contrast dated 12/04/2020 TECHNIQUE: Axial 3 mm thick images were obtained without oral or IV contrast. The [id number] span s the entirety of the system including uppermost abdomen and lung bases. All CT scans are performed using dose optimization technique as appropriate and may include automated exposure control or mA/KV adjustment according to patient size. FINDINGS: No hydronephrosis is present and no obstructing ureteral calculi. Numerous phleboliths are seen along the pelvic floor not clearly different from the November comparison study. Have calculus of t he ureter is not confirmed. No calyx calculi identified. No perinephric stranding seen. Left-sided pa rapelvic cysts are noted. No suspicious renal masses. Isodense masses and pyelonephritis are not excl uded on a stone protocol CT scan. No significant adrenal finding. No urinary bladder suspicious findi ng. Imaged portions of the liver, spleen and pancreas show no suspicious findings on non-contrast imaging . Gallbladder is well filled but not dilated. Gallstones can be occult on CT imaging. No biliary tree dilatation. No suspicious bowel findings. Appendix is not well defined. No suspicion for appendicitis. There is d iverticulosis in the sigmoid colon without diverticulitis or other acute colon process. Stool volume is moderate. No hernia, mass or bulky lymphadenopathy noted. No free air, free fluid or inflammatory stranding. Disc and bone degenerative changes are present. There is extensive lower thoracic and lumbar surgery with stabilization bar is in place. This creates moderately significant spray artifact no acute bone process suspected. IMPRESSION: No hydronephrosis, obstructing calculus or acute finding identifiable. Gallbladder is well filled but not dilated. Gallstones can be occult. There is no biliary tree dilata tion. No acute GI finding identifiable. Isodense masses and pyelonephritis are not excluded on stone protocol technique.
--- NOTE | 2021-02-06 10:01 | RAD REPORT ---
EXAM DESCRIPTION: RAD - Chest Single View - 02/06/2021 9:43 am CLINICAL HISTORY: COUGH COMPARISON: September 2017 TECHNIQUE: AP portable chest image was obtained 02/06/2021 9:43 am . FINDINGS: Lungs are clear. Interstitial pattern matches comparison. Heart and vasculature are normal . No measurable pleural effusion and no pneumothorax. No acute bone finding. Stabilization rods are i n place unchanged from comparison. No acute aortic findings suspected. IMPRESSION: No acute cardiopulmonary process. No significant change from comparison study.
[2021-02-06 10:30] LABS: Urine Blood 1+ (Negative); Urine Glucose Negative (Negative); Urine Protein 1+ (Negative); Urine Specific Gravity >=1.030 (1.005-1.030)
[2021-02-06] MEDS ORDERED: NA CHLORIDE 0.9% 1,000 ML ONE (10:49)
[2021-02-06] MEDS ORDERED: ONDANSETRON 4 MG/2 ML VIAL ONE (10:49)
[2021-02-06] MEDS ORDERED: CEFTRIAXONE/SWI 1gm 1 GM/10 ML SYR ONE (10:50)
[2021-02-06 11:02] LABS: Basophils % 0.2 % (0-1.3); Hematocrit 38.2 % (36.0-45.0); Lymphocytes % 8.9 % (15.3-44.8); MPV 7.9 fL (7.6-11.3); RBC Red Blood Cell Count 4.11 M/uL (3.86-4.86)
[2021-02-06 12:27] LABS: Albumin 4.2 g/dL (3.4-5.0); Bilirubin Direct 0.2 mg/dL (0-0.2); Bilirubin Total 0.6 mg/dL (0.2-1.0); Magnesium 2.2 mg/dL (1.8-2.4); Potassium 3.8 mmol/L (3.5-5.1)
[2021-02-06 12:30] LABS: CKMB Creatine Kinase MB 18.3 ng/mL (1.0-3.6)
[2021-02-06 12:31] LABS: Troponin (Emerg Dept Use Only) 4.66 ng/mL (0.0-0.045)
--- NOTE | 2021-02-06 12:40 | ER ---
Nurse's Notes [facility] Name: Nina Saeed Age: 75 yrs Sex: Female : 1945 Arrival Date: 02/06/2021 Time: 07:57 Bed 19 Private MD: Nilsa Long; Valeria Fajardo C Diagnosis: Non ST elevation [place];Weakness Presentation: 02/06 08:38 Chief complaint: Patient states: Diagnosed with UTI and taking Cipro. Pt states aa5 "yesterday I went outside and started feeling really hot and like my heart was racing and I couldn't cool off". Pt states "I also threw up twice yesterday and twice today". Pt denies diarrhea. Pt also reports abd pain. Coronavirus screen: vomiting. Ebola Screen: Patient negative for fever greater than or equal to 101.5 degrees Fahrenheit, and additional compatible Ebola Virus Disease symptoms. Initial Sepsis Screen: Does the patient meet any 2 criteria? No. Patient's initial sepsis screen is negative. Does the patient have a suspected source of infection? No. Patient's initial sepsis screen is negative. Risk Assessment: Do you want to hurt yourself or someone else? Patient reports no desire to harm self or others. Onset of symptoms was February 05, 2021. 08:38 Method Of Arrival: Ambulatory aa5 08:38 Acuity: TAMIKO 3 aa5 Historical: - Allergies: 08:42 Milk Containing Products; aa5 - PMHx: 08:42 chronic back pain; Hyperlipidemia; Hypertension; Migraines; aa5 - Immunization history:: Client reports receiving the 2nd dose of the Covid vaccine, Flu vaccine is up to date. - Social history:: Smoking status: Patient denies any tobacco usage or history of. Screenin:00 Abuse screen: Denies threats or abuse. Nutritional screening: No deficits noted. aa5 Tuberculosis screening: No symptoms or risk factors identified. Fall Risk None identified. Assessment: 08:45 General: Appears comfortable, Behavior is calm, cooperative. Pain: Complains of pain in aa5 right lower quadrant and left lower quadrant Pain currently is 6 out of 10 on a pain scale. Quality of pain is described as aching, Is continuous. Neuro: Level of Consciousness is awake, alert, obeys commands, Oriented to person, place, time, situation. Cardiovascular: Reports lightheadedness, nausea, generalized weakness. Heart tones S1 S2 present Pulses are 3+ in right radial artery and left radial artery Rhythm is regular. Respiratory: Airway is patent Respiratory effort is even, unlabored, Respiratory pattern is regular, symmetrical. GI: Abdomen is round non-distended, Bowel sounds present X 4 quads. Abd is soft and non tender X 4 quads. Reports nausea, vomiting. : Reports burning with urination. EENT: No signs and/or symptoms were reported regarding the EENT system. Derm: Skin is pink, warm \\T\\ dry. Musculoskeletal: Range of motion: intact in all extremities. 09:25 Reassessment: MD aware of inability to monitor tech pt in recliner at this time. . aa5 10:34 Reassessment: Patient is alert, oriented x 3, equal unlabored respirations, skin aa5 warm/dry/pink. 10:34 GI: Reports nausea. aa5 11:00 Reassessment: Patient is alert, oriented x 3, equal unlabored respirations, skin aa5 warm/dry/pink. Patient states feeling better. 13:00 Reassessment: Patient is alert, oriented x 3, equal unlabored respirations, skin aa5 warm/dry/pink. 13:20 Reassessment: Patient is alert, oriented x 3, equal unlabored respirations, skin aa5 warm/dry/pink. Vital Signs: 08:38 BP 122 / 79; Pulse 92; Resp 16 S; Temp 98.4(O); Pulse Ox 97% on R/A; Weight 58.97 kg aa5 (R); Height 5 ft. 0 in. (152.40 cm) (R); Pain 6/10; 13:00 BP 123 / 74; Pulse 75; Resp 16 S; Pulse Ox 98% on R/A; aa5 08:38 Body Mass Index 25.39 (58.97 kg, 152.40 cm) aa5 ED Course: 07:57 Patient arrived in ED. as 07:58 Valeria Fajardo MD is Private Physician. as 07:58 Nilsa Long is Private Physician. as 08:38 Arm band placed on. aa5 08:38 Patient has correct armband on for positive identification. Pt placed in diagnostic aa5 area (recliner area) due to ER saturation at this time. 08:41 Triage completed. aa5 08:44 Kirsten Silva, RN is Primary Nurse. aa5 08:46 Taye Elizondo MD is Attending Physician. hermilo 09:36 CT Stone Protocol In Process Unspecified. EDMS 09:43 XRAY Chest (1 view) In Process Unspecified. EDMS 10:14 Inserted saline lock: 20 gauge in left antecubital area, using aseptic technique. Blood ap3 collected. 12:30 Valeria Fajardo MD is Referral Physician. hermilo 12:38 Valeria Fajardo MD is Hospitalizing Provider. hermilo 12:50 teletypesetter monitor on. Pulse ox on. NIBP on. aa5 13:00 Inserted saline lock: 18 gauge in right antecubital area, using aseptic technique. jp3 Blood collected. Administered Medications: 10:34 Drug: NS 0.9% 1000 ml Route: IV; Rate: 1 bolus; Site: left antecubital; aa5 10:34 Drug: Rocephin (cefTRIAXone) 1 grams Route: IV; Rate: per protocol; Site: left aa5 antecubital; 10:34 Drug: Zofran (Ondansetron) 4 mg Route: IVP; Site: left antecubital; aa5 13:00 Drug: Pepcid (famotidine) 20 mg Route: IVP; Site: right antecubital; aa5 13:00 Drug: Aspirin Chewable Tablet 324 mg Route: PO; aa5 13:00 Drug: PlaVIX (clopidogrel) 300 mg Route: PO; aa5 13:00 Drug: Heparin ([place]-Bolus No thrombolytic) - HEParin 60 units/kg {Co-Signature: [place] (Maude Fernandes RN).} Route: IVP; Site: right antecubital; 13:00 Drug: Lopressor (metoprolol TARTRATE) 50 mg Route: PO; aa5 13:20 Drug: Heparin ([place] Drip) 12 units/kg/hr - (HEParin 38046 units, D5W 500 ml) aa5 {Co-Signature: [place] (Maude Fernandes RN).} Route: IV; Rate: calculated rate; Site: right antecubital; Outcome: 12:30 Discharge ordered by MD. hermilo 12:40 Decision to Hospitalize by Provider. hermilo 02/07 13:42 Patient left the ED. ap3 Signatures: Dispatcher MedHoTaye Vital MD MD cha Martinez, Amelia as Calderon, Audri, RN RN aa5 Genny Kaiser RN RN ap3 Cam Mcgowan 3 Maude Fernandes RN iw Corrections: (The following items were deleted from the chart) 02/06 08:43 08:38 Chief complaint: Patient states: Diagnosed with UTI and taking Cipro. Pt states aa5 "yesterday I went outside and started feeling really hot and like my heart was racing and I couldn't cool off". Pt states "I also threw up twice yesterday and twice today". Pt denies diarrhea. aa5 08:43 08:38 BP 122 / 79; Pulse 92bpm; Resp 16bpm; Spontaneous; Pulse Ox 97% RA; 58.97 kg aa5 Reported; Height 5 ft. 0 in. Reported; BMI: 25.3; aa5
--- NOTE | 2021-02-06 12:40 | EDPHYS ---
Physician Documentation [facility] Name: Nina Saeed Age: 75 yrs Sex: Female : 1945 Arrival Date: 02/06/2021 Time: 07:57 Bed 19 Private MD: Nilsa Long; Valeria Fajardo C ED Physician Taye Elizondo HPI: 02/06 10:27 This 75 yrs old Female presents to ER via Ambulatory with complaints of hermilo Nausea/Vomiting, Urinary Problem. Historical: - Allergies: 08:42 Milk Containing Products; aa5 - PMHx: 08:42 chronic back pain; Hyperlipidemia; Hypertension; Migraines; aa5 - Immunization history:: Client reports receiving the 2nd dose of the Covid vaccine, Flu vaccine is up to date. - Social history:: Smoking status: Patient denies any tobacco usage or history of. ROS: 10:29 Constitutional: Negative for fever, chills, and weight loss, Eyes: Negative for injury, hermilo pain, redness, and discharge, ENT: Negative for injury, pain, and discharge, Neck: Negative for injury, pain, and swelling, Cardiovascular: Negative for chest pain, palpitations, and edema, Respiratory: Negative for shortness of breath, cough, wheezing, and pleuritic chest pain, Back: Negative for injury and pain, MS/Extremity: Negative for injury and deformity, Skin: Negative for injury, rash, and discoloration, Neuro: Negative for headache, weakness, numbness, tingling, and seizure, Psych: Negative for depression, anxiety, suicide ideation, homicidal ideation, and hallucinations, Allergy/Immunology: Negative for hives, rash, and allergies, Endocrine: Negative for neck swelling, polydipsia, polyuria, polyphagia, and marked weight changes, Hematologic/Lymphatic: Negative for swollen nodes, abnormal bleeding, and unusual bruising. 10:29 Abdomen/GI: Positive for abdominal pain, of the suprapubic area. 10:29 : Positive for urinary frequency, burning with urination. Exam: 10:29 Constitutional: This is a well developed, well nourished patient who is awake, alert, hermilo and in no acute distress. Head/Face: Normocephalic, atraumatic. Eyes: Pupils equal round and reactive to light, extra-ocular motions intact. Lids and lashes normal. Conjunctiva and sclera are non-icteric and not injected. Cornea within normal limits. Periorbital areas with no swelling, redness, or edema. ENT: Nares patent. No nasal discharge, no septal abnormalities noted. Tympanic membranes are normal and external auditory canals are clear. Oropharynx with no redness, swelling, or masses, exudates, or evidence of obstruction, uvula midline. Mucous membranes moist. Neck: Trachea midline, no thyromegaly or masses palpated, and no cervical lymphadenopathy. Supple, full range of motion without nuchal rigidity, or vertebral point tenderness. No Meningismus. Chest/axilla: Normal chest wall appearance and motion. Nontender with no deformity. No lesions are appreciated. Cardiovascular: Regular rate and rhythm with a normal S1 and S2. No gallops, murmurs, or rubs. Normal PMI, no JVD. No pulse deficits. Respiratory: Lungs have equal breath sounds bilaterally, clear to auscultation and percussion. No rales, rhonchi or wheezes noted. No increased work of breathing, no retractions or nasal flaring. Back: No spinal tenderness. No costovertebral tenderness. Full range of motion. Female : Normal external genitalia. Skin: Warm, dry with normal turgor. Normal color with no rashes, no lesions, and no evidence of cellulitis. MS/ Extremity: Pulses equal, no cyanosis. Neurovascular intact. Full, normal range of motion. Neuro: Awake and alert, GCS 15, oriented to person, place, time, and situation. Cranial nerves II-XII grossly intact. Motor strength 5/5 in all extremities. Sensory grossly intact. Cerebellar exam normal. Normal gait. Psych: Awake, alert, with orientation to person, place and time. Behavior, mood, and affect are within normal limits. 10:29 Abdomen/GI: Inspection: abdomen appears normal, Bowel sounds: normal, Palpation: mild abdominal tenderness, in the suprapubic area, Liver: no appreciated palpable abnormalities, Hernia: not appreciated. 10:35 ECG was reviewed by the Attending Physician. [facility] Vital Signs: 08:38 BP 122 / 79; Pulse 92; Resp 16 S; Temp 98.4(O); Pulse Ox 97% on R/A; Weight 58.97 kg aa5 (R); Height 5 ft. 0 in. (152.40 cm) (R); Pain 6/10; 13:00 BP 123 / 74; Pulse 75; Resp 16 S; Pulse Ox 98% on R/A; aa5 08:38 Body Mass Index 25.39 (58.97 kg, 152.40 cm) aa5 MDM: 08:46 Patient medically screened. [facility] 10:32 Differential diagnosis: Nonspecific abd pain, gastritis, cholecystitis, pancreatitis, hermilo appendicitis, diverticulitis, viral gastroenteritis, gastroenteritis. Data reviewed: vital signs, nurses notes, lab test result(s), EKG, radiologic studies, CT scan, plain films. Data interpreted: conveyor monitor: rate is 92 beats/min, rhythm is regular, Pulse oximetry: on room air is 97 %. Test interpretation: by ED physician or midlevel provider: ECG, plain radiologic studies. Counseling: I had a detailed discussion with the patient and/or guardian regarding: the historical points, exam findings, and any diagnostic results supporting the discharge/admit diagnosis, lab results, radiology results, the need for outpatient follow up, for definitive care, a family practitioner. 02/06 09:22 Order name: Basic Metabolic Panel [facility] 02/06 09:22 Order name: CBC with Diff [facility] 02/06 09:22 Order name: LFT's [facility] 02/06 09:22 Order name: Magnesium [facility] 02/06 09:22 Order name: NT PRO-BNP; Complete Time: 12:32 [facility] 02/06 09:22 Order name: PT-INR; Complete Time: 11:23 [facility] 02/06 09:22 Order name: Troponin (emerg Dept Use Only); Complete Time: 12:32 [facility] 02/06 09:22 Order name: Ckmb; Complete Time: 12:32 [facility] 02/06 09:22 Order name: CK; Complete Time: 12:32 [facility] 02/06 09:22 Order name: Urine Culture [facility] 02/06 09:22 Order name: Basic Metabolic Panel; Complete Time: 12:32 [facility] 02/06 09:22 Order name: CBC with Automated Diff; Complete Time: 11:23 [facility] 02/06 09:22 Order name: Liver (Hepatic) Function; Complete Time: 12:32 [facility] 02/06 09:22 Order name: Magnesium; Complete Time: 12:32 [facility] 02/06 09:22 Order name: XRAY Chest (1 view); Complete Time: 10:28 [facility] 02/06 09:22 Order name: CT Stone Protocol; Complete Time: 10:28 [facility] 02/06 10:31 Order name: Urine Dipstick-Ancillary; Complete Time: 11:23 [facility] 02/06 12:34 Order name: Ptt, Activated kg 02/06 15:37 Order name: COVID-19 : Document "Date of Symptom Onset" if Symptomatic. [email or web address] 02/06 15:54 Order name: CORONAVIRUS [facility] 02/06 17:24 Order name: SARS-COV-2 RT PCR [facility] 02/06 18:22 Order name: Troponin I [facility] 02/06 19:07 Order name: PTT, Activated Partial Thromb [facility] 02/06 22:11 Order name: Troponin I [facility] 02/06 23:07 Order name: PTT, Activated Partial Thromb [facility] 02/07 02:59 Order name: PTT, Activated Partial Thromb [facility] 02/07 03:00 Order name: CBC with Automated Diff [facility] 02/07 03:05 Order name: Basic Metabolic Panel [facility] 02/07 08:00 Order name: PTT, Activated Partial Thromb [facility] 02/07 08:35 Order name: Lipid Profile [facility] 02/06 09:22 Order name: EKG; Complete Time: 09:22 [facility] 02/06 09:22 Order name: Cardiac monitoring; Complete Time: 13:32 [facility] 02/06 09:22 Order name: EKG - Nurse/Tech; Complete Time: 10:34 [facility] 02/06 09:22 Order name: IV Saline Lock; Complete Time: 10:14 [facility] 02/06 09:22 Order name: Labs collected and sent; Complete Time: 10:14 [facility] 02/06 09:22 Order name: O2 Per Protocol; Complete Time: 10:18 [facility] 02/06 09:22 Order name: O2 Sat Monitoring; Complete Time: 10:18 [facility] 02/06 09:22 Order name: Urine Dipstick-Ancillary (obtain specimen); Complete Time: 10:34 [facility] 02/06 12:44 Order name: CONS Physician Consult [facility] EC:35 Rate is 84 beats/min. Rhythm is regular. QRS [place] is Normal. TN interval is normal. QRS hermilo interval is normal. QT interval is normal. No Q waves. T waves are Normal. No ST changes noted. Clinical impression: NSR w/ Non-specific ST/T Changes and No evidence of ischemia. Interpreted by me. Reviewed by me. Administered Medications: 10:34 Drug: NS 0.9% 1000 ml Route: IV; Rate: 1 bolus; Site: left antecubital; aa5 10:34 Drug: Rocephin (cefTRIAXone) 1 grams Route: IV; Rate: per protocol; Site: left aa5 antecubital; 10:34 Drug: Zofran (Ondansetron) 4 mg Route: IVP; Site: left antecubital; aa5 13:00 Drug: Pepcid (famotidine) 20 mg Route: IVP; Site: right antecubital; aa5 13:00 Drug: Aspirin Chewable Tablet 324 mg Route: PO; aa5 13:00 Drug: PlaVIX (clopidogrel) 300 mg Route: PO; aa5 13:00 Drug: Heparin (PA-Bolus No thrombolytic) - HEParin 60 units/kg {Co-Signature: iw (Maude Fernandes RN).} Route: IVP; Site: right antecubital; 13:00 Drug: Lopressor (metoprolol TARTRATE) 50 mg Route: PO; aa5 13:20 Drug: Heparin (PA Drip) 12 units/kg/hr - (HEParin 65141 units, D5W 500 ml) aa5 {Co-Signature: iw (Maude Fernandes RN).} Route: IV; Rate: calculated rate; Site: right antecubital; Disposition Summary: 02/06/21 12:40 Hospitalization Ordered Hospitalization Status: Inpatient Admission hermilo Provider: Valeria Fajardo cha Condition: Fair(02/06/21 12:40) hermilo Problem: new(02/06/21 12:40) ehrmilo Symptoms: have improved(02/06/21 12:40) hermilo Bed/Room Type: Standard hermilo Location: [facility] ER HOLD(02/06/21 15:35) bd Room Assignment: ERHOLD-(02/06/21 15:35) bd Diagnosis - Non ST elevation PA hermilo - Weakness hermilo Forms: - Medication Reconciliation Form hermilo - SBAR form hermilo Signatures: Dispatcher [employer] EDMS Ella Roberson Corey, MD MD cha Calderon, Audri, RN RN aa5 Maude Fernandes RN iw Corrections: (The following items were deleted from the chart) 11:58 11:50 Dominguez ordered. hermilo hermilo 12:30 12:30 Home hermilo hermilo 12:30 12:30 new hermilo hermilo 12:30 12:30 have improved hermilo hermilo 12:30 12:30 Stable hermilo hermilo 12:30 12:30 Dysuria hermilo hermilo 12:30 12:30 Heat exhaustion, unspecified hermilo hermilo 15:35 12:40 Intensive Care Unit hermilo bd 15:35 12:40 hermilo bd
[2021-02-06] MEDS ORDERED: CLOPIDOGREL 75 MG TABLET ONE (13:17)
[2021-02-06] MEDS ORDERED: ASPIRIN 81 MG CHEWABLE TABLET ONE (13:17)
[2021-02-06] MEDS ORDERED: FAMOTIDINE 20 MG/2 ML VIAL IV ONE (13:17)
[2021-02-06] MEDS ORDERED: METOPROLOL TAR 50 MG TAB ONE (13:17)
[2021-02-06] MEDS ORDERED: HEPARIN/D5W 25,000 UNIT/500 ML BAG IV ONE (13:18)
[2021-02-06] MEDS ORDERED: ONDANSETRON 4 MG/2 ML VIAL IV PRN (15:53)
[2021-02-06] MEDS ORDERED: HEPARIN/D5W 25,000 UNIT/500 ML BAG IV PRN (15:53)
[2021-02-06] MEDS ORDERED: ACETAMINOPHEN 325 MG TABLET PO PRN (15:59)
[2021-02-06] MEDS ORDERED: MORPHINE 2 MG/ML SYR IV PRN (16:02)
[2021-02-06] MEDS ORDERED: METOPROLOL TAR 25 MG TAB ONE (17:53)
[2021-02-06] MEDS: METOPROLOL TAR 25 MG TAB PO SCH (18:00)
[2021-02-06] MEDS ORDERED: ATORVASTATIN 20 MG TAB PO SCH (21:00)
[2021-02-06] MEDS ORDERED: ATORVASTATIN 20 MG TAB ONE (21:57)
[2021-02-06 22:13] VITALS: BMI 3655.6
[2021-02-07 02:57] LABS: Absolute Lymphocytes (CBC) 1.3 K/uL (0.7-4.9); Basophils % 0.5 % (0-1.3); Hematocrit 33.2 % (36.0-45.0); Lymphocytes % 17.6 % (15.3-44.8); MPV 7.7 fL (7.6-11.3); RBC Red Blood Cell Count 3.59 M/uL (3.86-4.86)
[2021-02-07 03:05] LABS: BUN Blood Urea Nitrogen 16 mg/dL (7-18); Bicarbonate 26 mmol/L (21-32); Glucose Level 105 mg/dL (74-106); Potassium 4.1 mmol/L (3.5-5.1); Sodium Level 142 mmol/L (136-145)
[2021-02-07 04:11] VITALS: TEMP 98.4
[2021-02-07] MEDS: METOPROLOL TAR 25 MG TAB PO SCH (06:00)
[2021-02-07] MEDS ORDERED: NA CHLORIDE 0.9% 500 ML ONE (08:30)
[2021-02-07] MEDS ORDERED: FAMOTIDINE 20 MG/2 ML VIAL IV SCH (09:00)
[2021-02-07] MEDS ORDERED: CLOPIDOGREL 75 MG TABLET PO SCH (09:00)
[2021-02-07] MEDS ORDERED: ASPIRIN EC 81 MG TAB PO SCH (09:00)
[2021-02-07] MEDS ORDERED: FENTANYL CITR 100 MCG/2 ML ONE (09:16)
[2021-02-07] MEDS ORDERED: MIDAZOLAM HCL 2 MG/2 ML INJ ONE (09:16)
[2021-02-07] MEDS ORDERED: ATROPINE SULF 1 MG/10 ML SYR IV ONE (09:17)
[2021-02-07] MEDS ORDERED: NA CHLORIDE 0.9% 0 ML ONE (09:17)
[2021-02-07] MEDS ORDERED: NITROGLYCERIN/D5W 0 MG/0 ML BTL IV ONE (09:17)
[2021-02-07] MEDS ORDERED: NITROGLYCERIN 100 MCG/ML SYR (for cath lab use only) IV ONE (09:17)
[2021-02-07] MEDS ORDERED: HEPA 1000U/500MLS 1,000 UNIT/500 ML BAG IV ONE (09:19)
--- NOTE | 2021-02-07 09:44 | HP ---
Date of Admission: 02/06/2021 Chief Complaint: Chest pain, heart racing, nausea, vomiting, and feeling weak. History Of Present Illness: This is a 75-year-old female patient, who was doing some yard work yeste rday and all of a sudden she started to have some vague chest pain along with early heart racing type of feeling. She felt very weak, dizzy. She had some nausea, vomiting with this. So, she went into the house, sat down, and she was still sweating in the air conditioned room. Subsequently, she got better and went to sleep, but this morning she was not still quite feeling back to her normal self, s o her asked her to come to emergency room and she did come to ER. After she was evaluated in the emergency room, she was diagnosed as having some acute myocardial infarction and I was contacted requesting admission to the hospital. When I saw her, she was in the emergency room, asymptomatic. Allergies: NO KNOWN ALLERGIES. Medications: Fosamax 70 mg once a week, aspirin 81 mg daily, Caltrate plus D 1 tablet by mouth 2 selene es a day, enalapril 5 mg p.o. daily, estradiol vaginal cream, omeprazole 20 mg daily, paroxetine 10 m g daily, rosuvastatin 10 mg daily, verapamil 240 mg tablets daily. Review of Systems: Cardiovascular: As mentioned above. GI: As mentioned above. All other systems reviewed and negative. Musculoskeletal: Chronic back pain. Past Medical History: Significant for hypertension, hyperlipidemia, gastroesophageal reflux disease, leukocytopenia, anxiety, depression, osteoporosis. Past Surgical History: Hysterectomy, bladder suspension, back surgery in July 09, 2020 and prior to that in 2002. She had Mckeon charline placed for scoliosis and also had foot surgery in the past. Family History: Father , had laryngeal cancer and heart disease. Mother , had diabetes and heart disease. Brother, Alzheimer, and sister with colon cancer. Social History: Negative for smoking, alcohol use. Immunization History: She had her COVID-19 vaccine 2 doses, first dose on August 29, 2020, second dos e on September 21, 2020. Physical Examination: Vital Signs: When she came in; blood pressure 122/79, pulse 92, respiratory rate 16, temperature 98. 4, oxygen saturation 97%. Weight 58.97 kg. General: Awake, alert, oriented, not in distress. HEENT: Head atraumatic, normocephalic. Conjunctivae nonerythematous. Sclerae white. Mouth, no thr ush or edema noted. Ears/Nose, no mass, lesion, discharge noted. Neck: Supple. No JVD, lymph nodes, bruit, thyromegaly noted. Lungs: Bilateral good equal air entry. Clear to auscultation. No rhonchi. No rales. Heart: Normal heart sounds, no murmur or gallop. Abdomen: Soft, bowel sounds normal. No guarding, rigidity, tenderness, mass, hepatosplenomegaly, dis tention, or bruit noted. Extremities: No leg edema. No calf tenderness. Skin: No rash, ulcer, cellulitis. Lymphatics: No lymph node enlargement in neck, supraclavicular, infraclavicular region. Neuro: No focal neurological deficit. Chest: Unremarkable. External Genitalia: Deferred. Rectal: Deferred. Laboratory Data: Chest x-ray, no acute cardiopulmonary changes. CAT scan of the abdomen, no acute i ntra-abdominal changes noted. EKG reviewed. White count 11.6, hemoglobin 12.8, platelets 289. Sodi um 139, potassium 3.8, chloride 108, bicarb 27, BUN 23, creatinine 0.82, glucose 122. Liver function tests unremarkable. Troponin 4.66 on the first set, second set troponin 3.12. ProBNP 2890. Urinal ysis; 1+ blood, negative for nitrite, negative for leukocyte esterase, 1+ protein. COVID-19 test neg ative. Impression: 1.Non-ST segment elevation myocardial infarction. 2.Hypertension. 3.Hyperlipidemia. 4.Gastroesophageal reflux disease. 5.Anxiety. 6.Depression. 7.Osteoporosis. Plan: We will go ahead and admit the patient to hospital for further evaluation and management of th is problem. The patient is appropriate for inpatient and is expected to spend [address] [facility]. We will continue anti-platelet therapy per order and heparin was started. We will continue t hat per protocol. Patient Financial Services Manager has been consulted and the patient will undergo cardiac cath tomorrow morning and further intervention will depend on cardiac cath finding. All these details were discus sed with her. The patient will need high dose statin therapy. Details and plan of treatment discuss ed with the patient and I will see her tomorrow morning for followup. KATE/GABRIEL Voice ID: [id number]
[2021-02-07 10:18] VITALS: O2SAT 100
[2021-02-07 11:40] VITALS: BP 111/58
[2021-02-07] MEDS ORDERED: ROSUVASTATIN 10 MG TAB PO SCH (21:00)
--- NOTE | 2021-02-08 08:17 | DS ---
Date of Discharge: 02/07/2021 Disposition: Discharged to go home. Physical Examination: HEENT: Unremarkable. Lungs: Clear to auscultation. Heart: Sounds normal. Abdomen: Soft. Bowel sounds normal. No guarding, rigidity, tenderness, distention. Extremities: No leg edema. Laboratory Data: White count 7.5, hemoglobin 11.2, platelets 229. Sodium 142, potassium 4.1, chlori de 114, bicarb 26, BUN 16, creatinine 0.62, glucose 105. First troponin 4.66. Second troponin 3.12. Last troponin 2.41. Hospital Course: A 75-year-old female patient admitted to the hospital with complaints of vague ches t discomfort, nausea, vomiting, feeling very weak, and all the symptoms started after she was working in the yard. The patient came into emergency room after she was evaluated. She was admitted to the hospital with non-STEMI. She was started on aspirin, heparin drip per protocol, and Plavix. Her co ndition improved over the period of this hospital stay and Cardiology consultation was obtained from Dr. Rivas. Lipid profile was done today, results reviewed. The patient's cardiac cath came back c ompletely normal as per my discussion with Dr. Rivas. After her rest period was over, the patient was released to go home. Discharge Medications And Instructions: 1.Continue all prior home medication except increase dose of rosuvastatin 10 mg. The patient to brittany e 2 tablets by mouth daily. 2.Follow up at my office next week on Thursday, which is 02/13/2021, at 10 a.m. 3[address]Follow [address] Dr. Rivas in 2 weeks. Final Diagnoses: 1.[id number]-[id number] myocardial infarction. 2.Hyperlipidemia. 3.Hypertension. KATE/MODL Voice ID: [id number] Report ID: [id number]
--- NOTE | 2021-02-08 15:34 | CON ---
Date of Consultation: 02/06/[address] Fajardo's service on 02/06/2021. Reason For Consultation: Non-ST elevation myocardial infarction. History Of Present Illness: Mrs. Saeed is a 75-year-old woman with history of hypertension, dyslipi demia, came into the emergency room with nausea, vomiting, altered mental status, felt like she was d ehydrated and weak and was noted to have an elevated troponin of 5, consistent with non-ST elevation myocardial infarction. EKG showed nonspecific changes with slightly prolonged QT syndrome. Chest x- ray was negative. Her creatinine was normal. Denied PND, orthopnea, pedal edema, palpitation, or sy ncope. Past Medical History: Includes hypertension, dyslipidemia. Allergies: NONE. Review of Systems: Negative. Social History: Negative. Family History: Negative. Medications: At home include Vasotec, Zocor, verapamil. Physical Examination: Vital Signs: Stable. Afebrile. HEENT: Negative. Neck: Supple. No bruit, lymphadenopathy, JVD, or thyromegaly. Chest: Clear to auscultation and percussion. Cardiac: Revealed a regular rhythm and rate. No murmurs, gallops, or rubs. Abdomen: Benign. Extremities: Revealed no clubbing, cyanosis, or edema. Diagnostic Data: Stated earlier. Impression And Plan: Nonspecific changes with elevated troponin consistent with non-ST elevation k[place] cardial infarction. The patient has hypertension that is poorly controlled. She is on Zocor, verapa mil, Vasotec. She has dyslipidemia. She does not have diabetes. We will plan a heart catheterizati on to define her coronary anatomy. The patient understands the risk and the benefit of the procedure and she agrees to proceed. KAMLESH/GABRIEL Voice ID: [id number] Report ID: [id number]
--- NOTE | 2021-02-08 20:55 | OP ---
Date of Procedure: 02/07/2021 Surgeon: Hernando Rivas MD Network Security Consultant: Mr. Gamal Ramey. The case was discussed with Dr. Fajardo and the family. Procedures: Left heart catheterization and selective coronary arteriogram. Indication: Non-ST elevation myocardial infarction. Procedure In Detail: Ms. Saeed is 75, history of hypertension, dyslipidemia, comes in with nonspeci fic EKG changes. Troponin of 5, brought to the dental laboratory assistant on 02/07/2021, for a heart catheterization. She was prepped and draped in the routine sterile fashion. 6-American sheath introduced in the right common femoral artery using the Seldinger technique. 10 cc of Xylocaine were used. Angiography ther e was normal. Angio-Seal was used to close the case. Guy catheters left and right were used to cannulate the left main and right main respectively. She was found to have some mild plaquing in the LAD territory. Normal circumflex, normal left main, normal RCA, right dominant. The patient tolera mery the procedure well. There were no complications. Blood Loss: 5 cc. Anesthesia: Total conscious sedation was 45 minutes. Final Diagnoses: Abnormal troponin, minimal coronary artery disease. Plan: Plan is for medical therapy. The patient can go home after 2 hours of bedrest. NB/MODL Voice ID: [id number] Report ID: [id number]
== END 2021-02-07 13:16 | disposition home or self-care (01) ==
LOC: ER 07:55 → INTOOBSV 12:42 → ERHOLD 12:42
PROVIDERS: ADMIT Internal Medicine; ATTEND Internal Medicine
DX: I21.4 Non-ST elevation (NSTEMI) myocardial infarction (principal); I10 Essential (primary) hypertension; I25.10 Atherosclerotic heart disease of native coronary artery without angina pectoris; E78.5 Hyperlipidemia, unspecified; K21.9 Gastro-esophageal reflux disease without esophagitis; F41.9 Anxiety disorder, unspecified; F32.9 Major depressive disorder, single episode, unspecified; D72.819 Decreased white blood cell count, unspecified; M81.0 Age-related osteoporosis without current pathological fracture; M54.9 Dorsalgia, unspecified; G89.29 Other chronic pain; G43.909 Migraine, unspecified, not intractable, without status migrainosus; Z20.822 Contact with and (suspected) exposure to COVID-19; Z79.82 Long term (current) use of aspirin; Z91.011 Allergy to milk products; Z90.710 Acquired absence of both cervix and uterus; Z82.49 Family history of ischemic heart disease and other diseases of the circulatory system; Z83.3 Family history of diabetes mellitus; Z80.8 Family history of malignant neoplasm of other organs or systems; Z80.0 Family history of malignant neoplasm of digestive organs; Z82.0 Family history of epilepsy and other diseases of the nervous system
CPT/HCPCS: 93005; 87088; 85025 ×3; 87086; 80048 ×2; 36415 ×2; 83735; 82550; 85610; 80061 ×2; 80076; 85730 ×5; 81003; 84484 ×3; 82553; 80053; 83880; 76377; 74176; 71045; 93454; 99285; U0003; C1893; C1760; J2250; J3010; J1644 ×3; J0696; J7040; J7030; J2405; J0583